=== PATIENT | male | born 1965 | race Caucasian/White ===

== ENCOUNTER 2020-08-15 09:32 | Outpatient (RCR) | payer MEDICARE, SELFPAY ==
[2013-08-15 18:00] VITALS: BMI 26.8
[2020-08-15] MEDS: COVID-19 VACC, MRNA(PFIZER)/PF 30 MCG/0.3 ML SYRINGE IM (07:15)
[2020-09-05] MEDS: COVID-19 VACC, MRNA(PFIZER)/PF 30 MCG/0.3 ML SYRINGE IM (07:05)
== END 2020-08-15 23:59 ==
LOC: IMMUN 09:32
PROVIDERS: PCP Internal Medicine; Visit Provider Family Medicine
DX: Z23 Encounter for immunization (principal)
CPT/HCPCS: 0001A; 0002A; 91300

== ENCOUNTER 2024-12-27 00:23 | Emergency (ER) | payer OTHER, SELFPAY ==
[2024-12-27 00:26] VITALS: BP 123/82; PULSE 51; RESP 16; TEMP 36.8; O2SAT 100; BMI 27.3
--- NOTE | 2024-12-27 01:00 | EDS_ITS ---
HPI History of Present Illness Chief Complaint: Back Informant: patient and EMS Narrative Narrative: 59-year-old male had sciatica 8 years ago, had an MRI showing L4-5 disc significant degeneration/problem and suspected source, opted to treat nonoperatively, had some injections and has been pain-free until 3 weeks ago when he lifted an air conditioning unit and had acute pain that has been persistent. For the past week it has been progressively worse and radiating into the right thigh not below the knee but down to it. No numbness or tingling. Has been urinating frequently but states has also been drinking more fluids. Denies any bowel or bladder dysfunction or retention/incontinence. No saddle anesthesia. No abdominal pain. Feels similar to what it did 8 years ago except then it was going down both legs. Yesterday he went to urgent care for this and was prescribed muscle relaxers and prednisone which he started but they are not helping, he is adding Tylenol to it and is not helping at all. [facility] Medical History (Updated 12/27/24 @ 02:[address] Mateus Ward MD) Sciatica Home Medications ?Medication ?Instructions ?Recorded ?Last Taken ?Type levothyroxine 150 mcg tablet 150 mcg PO DAILY 08/15/13 08/15/13 History sertraline 100 mg tablet 100 DAILY 08/15/13 08/14/13 History oxycodone-acetaminophen 5 mg-325 1 tab PO Q6H PRN PRN Pain 4 days 12/27/24 Unknown Rx mg tablet #15 TABLETS Allergy/AdvReac Type Severity Reaction Status Date / Time No Known Allergies Allergy Verified 12/27/24 00:26 Social History Smoking Status: Never smoker ROS ROS ED Constitutional Constitutional ED: Denies chills or fever(s) Gastrointestinal Gastrointestinal: Denies abdominal pain, constipation, fecal incontinence, nausea or vomiting Genitourinary Genitourinary ED: Reports other Details: no urinary retention ; Denies abdominal discomfort or urinary incontinence Musculoskeletal Musculoskeletal: Reports as per HPI and back pain; Denies neck pain Integumentary Denies rash or wounds Neurologic Neurologic: Denies headache(s), paresthesias or weakness EXAM Physical Exam Const Vital Signs: 12/27/24 00:26 Temperature 98.3 F Temperature Source Oral Pulse Rate 51 L Respiratory Rate 16 Blood Pressure 123/82 H Blood Pressure Mean 95 Pulse Ox 100 Oxygen Delivery Method Room Air Positive well nourished and well developed General Appearance ED: well developed and NAD HEENT Negative for trauma or tenderness Eyes PERRL and EOMs intact bilaterally Neck full ROM and supple GI normal to inspection, nondistended, normoactive bowel sounds, soft to palpation and non-tender Back/Spine normal to inspection Lumbar Spine / Lower Back: ROM limited, paraspinal muscle tenderness and straight leg raise negative bilaterally; Negative for lumbar spinal tenderness Extremity normal to inspection, full ROM and no pedal edema Neuro oriented x3 and no sensory deficits noted Neuro Narrative: Normal gait Sensorium / Orientation: alert Motor Exam: strength 5/5 throughout and clonus absent Deep Tendon Reflexes: Rt Patellar (L4): 1+, Lt Patellar (L4): 1+, Rt Ankle (S1): 1+ and Lt Ankle (S1): 1+ Deep Tendon Reflexes Back: Rt Patellar (L4): 1+, Lt Patellar (L4): 1+, Rt Ankle (S1): 1+ and Lt Ankle (S1): 1+ Plantar Reflex: Downgoing: bilateral Psych mental status grossly normal and thought process normal Skin no rashes or lesions noted and no wounds MDM MDM MDM Narrative Medical decision making narrative: Pain control was provided and obtained three-view x-ray series of the lumbosacral spine which my interpretation shows no acute compression fractures, radiology was in agreement. Patient did better after initial round of morphine and Zofran, but the pain was coming back. He is able to walk. His postvoid residual was relatively low, showing no acute urinary retention, plan here is to give him a dose of Dilaudid 0.5 mg IV as well as an oxycodone prior to discharge with a prescription for some oxycodone and close outpatient follow-up with spine. He and are comfortable with that plan. Radiography Diagnostic Testing: Clinical Impression(s) from Imaging Studies Lumbar Spine X-Ray 12/27/24 01:25 IMPRESSION: No acute injury Reading Location: [place] [address] Discharge Plan Triage Chief Complaint: Back ED Provider: Mateus Ward Dx/Rx/DC Orders Clinical Impression: Acute bilateral low back pain with right-sided sciatica Instructions: ED Sciatica Prescriptions: New oxycodone-acetaminophen 5-325 mg tablet 1 tab PO Q6H PRN PRN (Reason: Pain) 4 Days Qty: 15 0RF No Action sertraline 100 MG tablet 100 DAILY Patient Comments: levothyroxine 150 MCG tablet 150 mcg PO DAILY Primary Care Provider: Juan Simpson Referrals: Macho Neff MD [Med Staff - Active Staff] - As soon as possible Print Language: Sami Disposition Disposition: Home, Self Care
--- OUTSIDE RECORDS SUMMARY | 2024-12-27 01:21 | XMS RPT_ITS | CCD ---
Author Organization [facility] Partnership [facility] [place] [facility] Care Team Providers Care Microsoft Solutions Architect Name Role Phone Brent Pepper MD Primary Care Provider Brent Pepper MD Primary Care Provider [phone] Dejon MILLING MACHINE OPERATOR.Maeve TIAN Unavailable BRENT PEPPER Primary Care Unavailable MAEVE ASHFORD Referring Unavailable BRENT PEPPER Primary Care Unavailable BRENT PEPPER Attending Unavailable BRENT PEPPER Primary Care Unavailable NIGEL SIMPSON Attending Unavailable BRENT PEPPER Primary Care Unavailable Allergies Allergy Classification Reported Allergen(s) Allergy Type Date of Onset Reaction(s) Facility (19 sources) Grass pollen; Translations: [GRASS POLLEN] Propensity to adverse reactions 08-19-2005 [facility] (19 sources) Pollen; Translations: [POLLEN] Propensity to adverse reactions 08-19-2005 [facility] (14 sources) Homeopathic Products; Translations: [HOMEOPATHIC PRODUCTS] Propensity to adverse reactions 08-19-2005 [facility] Medications Current Medications Medication Drug Class(es) Dates Sig (Normalized) Sig (Original) cyclobenzaprine hydrochloride 10 mg oral tablet (1 source) Muscle Relaxant Start: 12-25-2024 take 1 tablet by mouth three times daily as needed cyclobenzaprine (FLEXERIL) 10 mg tablet Indications: Radicular low back pain Take 1 tablet by mouth three times a day as needed. 30 tablet 12/25/2024 Active doxycycline hyclate 100 mg oral tablet (1 source) Tetracycline-cl ass Drug Start: 02-13-2024 End: 02-20-2024 take 1 tablet by mouth twice daily doxycycline (VIBRA-TABS) 100 mg tablet Indications: Respiratory infection Take 1 tablet by mouth two times a day for 7 days. 14 tablet 02/13/2024 02/20/2024 Active levothyroxine sodium 0.15 mg oral tablet (20 sources) l-Thyroxine Start: 09-06-2023 End: 09-07-2024 take 1 tablet by mouth once daily for thyroid dysfunction levothyroxine (SYNTHROID) 150 mcg tablet Indications: Postsurgical hypothyroidism Take 1 tablet by mouth once daily. Take on empty stomach. For thyroid 90 tablet 3 09/07/2024 Active Start: 08-08-2021 End: 08-31-2022 take 1 tablet by mouth once daily for thyroid dysfunction levothyroxine (SYNTHROID) 150 mcg tablet Indications: Postsurgical hypothyroidism Take 1 tablet by mouth once daily. Take on empty stomach. For thyroid 30 tablet 11 08/31/2022 Active Start: 08-15-2013 take 1 tablet by paulette th once daily Levothyroxine (Synthroid) 150 MCG Tablet Active 150 MCG PO DAILY August 15, 2013 6:03pm Comment on above: Take 1 tablet by paulette th once daily. Take on empty stomach. For thyroid predniSONE 20 mg oral tablet (1 source) Start: 12-25-2024 End: 12-30-2024 take 1 tablet by mouth once daily predniSONE (DELTASONE) 20 mg tablet Indications: Radicular low back pain Take 1 tablet by mouth once daily for 5 days. 5 tablet 12/25/2024 12/30/2024 Active Completed/Discontinued Medications Medication Drug Class(es) Dates Sig (Normalized) Sig (Original) cetirizine hydrochloride 10 mg oral tablet (6 sources) Histamine-1 Receptor Antagonist Start: 08-26-2020 End: 08-31-2022 cetirizine (ZYRTEC) 10 mg tablet Take 1 tablet by mouth as needed (Fall allergies). 0 08/26/2020 08/31/2022 Discontinued Comment on above: Take 1 tablet by paulette th as needed (Fall allergies). polyethylene glycol 3350 612668 mg / potassium chloride 2970 mg / sodium bicarbonate 6740 mg / sodium chloride 5860 mg / sodium sulfate 52861 mg powder for oral solution (1 source) Osmotic Laxative Start: 11-06-2022 End: 11-06-2022 peg 3350-Electrolytes (GOLYTELY) 236-22.74-6.74 -5.86 gram suspension Take 4,000 mL by mouth one time only for 1 dose. 1 Each 0 11/06/2022 11/06/2022 Comment on above: Take 4,000 mL by paulette th one time only for 1 dose. sertraline 50 mg oral tablet (2 sources) Serotonin Reuptake Inhibitor Start: 11-25-2020 End: 08-28-2021 take 1 tablet by mouth once daily sertraline (ZOLOFT) 50 mg tablet Indications: Anxiety Take 1 tablet by mouth once daily. 90 tablet 2 11/25/2020 08/28/2021 Discontinued Start: 08-15-2013 Sertraline Hcl Active 100 DAILY August 15, 2013 6:03pm Comment on above: Take 1 tablet by paulette th once daily. Problems Active Problems Problem Classification Problem Date Documented Date Episodic/Chronic Complications of surgical procedures or medical care (20 sources) Postoperative hypothyroidism; Translations: [Postprocedural hypothyroidism] Onset: 12-23-2006 Chronic Disorders of lipid metabolism (4 sources) Hypertriglyceridemia ; Translations: [Pure hyperglyceridemia] Onset: 09-01-2024 Chronic Immunizations and screening for infectious disease (2 sources) Vaccination needed; Translations: [Encounter for immunization] Episodic Other and unspecified benign neoplasm (1 source) History of polyp of colon; Translations: [Personal history of colonic polyps] Episodic Other ear and sense organ disorders (1 source) Acute otitis externa of right ear; Translations: [Unspecified acute noninfective otitis externa, right ear] Episodic Other lower respiratory disease (1 source) Respiratory tract infection; Translations: [Other specified respiratory disorders] 02-13-2024 Episodic Other male genital disorders (1 source) Testicular mass; Translations: [Other specified disorders of the male genital organs] 03-26-2022 Episodic Other skin disorders (1 source) Raised seborrheic keratosis; Translations: [Other seborrheic keratosis] 09-02-2023 Episodic Other upper respiratory disease (18 sources) Non-allergic rhinitis; Translations: [Chronic rhinitis] Onset: 10-02-2011 10-02-2011 Chronic Residual codes; unclassified (20 sources) Obstructive sleep apnea syndrome; Translations: [Obstructive sleep apnea (adult) (pediatric)] Onset: 10-23-2011 Chronic Spondylosis; intervertebral disc disorders; other back problems (11 sources) Lumbago with sciatica; Translations: [Lumbago with sciatica, left side] Onset: 08-13-2016 Resolved: 08-09-2018 10-06-2023 Episodic Past or Other Problems Problem Classification Problem Date Documented Da te Episodic/Chronic Anxiety disorders (8 sources) Anxiety; Translations: [Anxiety disorder, unspecified] Onset: 2 Resolved: 6 08-08-2015 Chronic Diabetes mellitus without complication (13 sources) Impaired fasting glycemia; Translations: [Impaired fasting glucose] Onset: 7 Resolved: 1 Episodic Esophageal disorders (8 sources) Gastroesophageal reflux disease; Translations: [Gastro-esophageal reflux disease without esophagitis] Onset: 7 Resolved: 2 09-09-2011 Chronic Genitourinary symptoms and ill-defined conditions (10 sources) Lower urinary tract symptoms; Translations: [Unspecified symptoms and signs involving the genitourinary system] Onset: 4 Resolved: 5 09-02-2023 Episodic Other and unspecified benign neoplasm (20 sources) Tubular adenoma of colon; Translations: [Benign neoplasm of colon, unspecified] Onset: 7 Episodic Other ear and sense organ disorders (18 sources) Tinnitus of left ear; Translations: [Tinnitus, left ear] Onset: 1 Resolved: 5 08-26-2020 Episodic Other gastrointestinal disorders (8 sources) Dysphagia; Translations: [Dysphagia] Onset: 7 Resolved: 2 09-09-2011 Episodic Other screening for suspected conditions (not mental disorders or infectious disease) (19 sources) Patient encounter status; Translations: [Encounter for screening for malignant neoplasm of prostate] Onset: 3 Resolved: 4 Episodic Other upper respiratory disease (8 sources) Allergic rhinitis; Translations: [Other allergic rhinitis] Resolved: 2 09-09-2011 Chronic Skin and subcutaneous tissue infections (8 sources) Abscess of head, except face; Translations: [Cutaneous abscess of head [any part, except face]] Onset: 6 Resolved: 7 08-13-2016 Episodic Results Test Name Value Interpretation Reference Range Facility [facility] 12-25-2024 CNCO Letter Text Normal [facility] CNOVon 12-25-2024 CNOV Office Visit (FAMPWS ) GORDONKELLEY ([id number]) 1965 M Date Time Provider Department 12/25/24 6:40 PM [facility] SIMPS[facility] During your visit today, we recorded the following information about you: Pulse Blood pressure Weight 58/minute 148/90 98.2 kg Nigel Simpson MD 12/25/2024 6:52 PM Signed - Obtain a lumbar spine X-ray this evening; we will notify you when the results are available. - Take prednisone 20 mg by mouth once daily for 5 days to reduce inflammation. - Begin the prescribed muscle relaxant as directed; avoid driving or operating heavy machinery while taking it. - Continue applying ice and heat to your lower back as needed for pain relief. - You are excused from work December 26 through December 29; a work slip has been provided. - If your pain worsens, contact the office immediately. - If you do not notice improvement after one week, schedule a follow-up appointment. - Have your blood pressure checked in one month to monitor for any trends. Nigel Simpson MD 12/25/2024 7:54 PM Signed Kelley Araujo Gordon is a 59-year-old male with a history of chronic back pain and sciatica, presenting with acute onset right-sided low back pain radiating to the buttock and thigh. HPI Chronic Back Pain: - History of back problems since 1995, managed with physiotherapy and social worker palliative care. - Diagnosed with severe sciatica in 2017, with MRI showing no disc at L4-L5. - Previously treated with two injections at [facility], providing 8 years of relief. - Recent exacerbation after bending over to hand picker a cat's bowl, described as an electric sensation in the back. - Current pain localized to the right side, starting at the base of the spine and radiating to the buttock and down the thigh to the knee. - Describes pain as spasms, ache, and throb; does not extend below the knee. - No associated numbness or tingling; no pain on the left side. - Increased urinary frequency over the weekend, attributed to high fluid intake and ibuprofen use. - No abdominal pain or issues reported. - Recent chiropractic evaluation with Dr. Colindres included gentle manipulation and exercises; pain worsened after returning to work. - Last imaging for back issues was in 2017. - No history of kidney problems. - Borderline high blood pressure noted, possibly related to current pain and stress. MEDICATIONS: Current Outpatient Medications Medication Sig levothyroxine (SYNTHROID) 150 mcg tablet Take 1 tablet by mouth once daily. Take on empty stomach. For thyroid predniSONE (DELTASONE) 20 mg tablet Take 1 tablet by mouth once daily for 5 days. cyclobenzaprine (FLEXERIL) 10 mg tablet Take 1 tablet by mouth three times a day as needed. No current facility-administered medications for this visit. ALLERGIES: ALLERGIES Allergen Reactions Grass Pollen Pollen PAST MEDICAL HISTORY Diagnosis Date Abscess of head, except face 02/14/2016 Allergic rhinitis due to other allergen Anxiety 09/09/2011 Dyskinesia of esophagus Dysphagia 12/23/2006 Esophageal reflux Esophagitis, unspecified Hypothyroidism Lower urinary tract symptoms (LUTS) 09/02/2023 Lumbago with sciatica, right side 08/13/2016 Nontoxic uninodular goiter LINA (obstructive sleep apnea) 10/23/2011 Personal history of other infectious and parasitic disease [id number] [facility] Postsurgical hypothyroidism 12/23/2006 Rhinitis, non-allergic 10/02/2011 Tinnitus of left ear 08/26/2020 Tubular adenoma of colon 12/19/2016 Urinary sys symptom NEC Bladder outlet symptoms PAST SURGICAL HISTORY Procedure Laterality Date COLONOSCOPY 12/07/2016 tubular adenoma, repeat in 3 years COLONOSCOPY 08/04/2021 repeat in 1 year (tubular adenoma) COLONOSCOPY - DIAGNOSTIC 12/14/2022 COLONOSCOPY FLX DX W/COLLJ SPEC WHEN PFRMD 03/25/2020 Colonoscopy 1 year repeat EGD TRANSORAL BIOPSY SINGLE/MULTIPLE 10/10/2010 SEPTOPLASTY/SUBMUCOUS RESECJ W/WO CARTILAGE GRF 1998 Septoplasty FAMILY HISTORY Problem Relation Age of Onset Hypertension Mother Diabetes Mother 84 prediabetes Diabetes Father GI Father Celiac Hypertension Brother Diabetes Maternal Grandfather Social History Tobacco Use Smoking status: Former Types: Cigars Smokeless tobacco: Never Tobacco comments: rare cigar Vaping Use Vaping status: Never Used Substance Use Topics Alcohol use: Yes Alcohol/week: 7.0 standard drinks of alcohol Types: 7 Standard drinks or equivalent per week Drug use: No Reviewed current medications, allergies, past medical history, surgical history, family history and social history today. REVIEW OF SYSTEMS Gastrointestinal: (-) abdominal pain Genitourinary: (+) urinary frequency, (-) flank pain Musculoskeletal: (+) right low back pain, (+) right buttock pain, (+) right thigh pain, (+) right knee pain, (+) muscle spasms Neurological: (more content not included)... Normal [facility] CNOVon 09-07-2024 CNOV Office Visit (INTMWS ) KELLEY LEYVA ([id number]) 1965 M Date Time Provider Department 09/07/24 5:20 PM BRENT PEPPER [facility] During your visit today, we recorded the following information about you: Pulse Respiration Blood pressure Weight 54/minute 16/minute 110/63 98 kg Height 1.867 m Brent Pepper MD 09/07/2024 6:16 PM Signed This note was created using Pristones. Subjective Patient presents with: Physical Kelley Leyva is a 58 year old male. He felt well in general. Work is physical and he also exercised 2 days per week. His thyroid dose was stable. Lipids improved, and borderline glucose was stable. His obstructive sleep apnea was well controlled, and managed by Dr. Reynoso. His nasal allergies were mainly in the fall and controlled with over the counter Flonase and Zyrtec. His colonoscopy was due next year. He sees Dr. Mireles for optometry. Review of Systems Constitutional: Negative for activity change, fatigue and unexpected weight change. HENT: Positive for tinnitus. Negative for congestion and hearing loss. Eyes: Negative for visual disturbance. Respiratory: Negative for cough, shortness of breath and wheezing. Cardiovascular: Negative for chest pain, palpitations and leg swelling. Gastrointestinal: Negative for abdominal pain, constipation and diarrhea. Genitourinary: Negative for difficulty urinating and dysuria. Musculoskeletal: Negative for arthralgias and back pain. Skin: Negative for color change. Neurological: Negative for dizziness and headaches. Psychiatric/Behavioral: Negative for dysphoric mood and sleep disturbance. The patient is not nervous/anxious. PAST MEDICAL HISTORY Diagnosis Date Abscess of head, except face 02/14/2016 Allergic rhinitis due to other allergen Anxiety 09/09/2011 Dyskinesia of esophagus Dysphagia 12/23/2006 Esophageal reflux Esophagitis, unspecified Hypothyroidism Lower urinary tract symptoms (LUTS) 09/02/2023 Lumbago with sciatica, right side 08/13/2016 Nontoxic uninodular goiter LINA (obstructive sleep apnea) 10/23/2011 Personal history of other infectious and parasitic disease [id number] [facility] Postsurgical hypothyroidism 12/23/2006 Rhinitis, non-allergic 10/02/2011 Tinnitus of left ear 08/26/2020 Tubular adenoma of colon 12/19/2016 Urinary sys symptom NEC Bladder outlet symptoms PAST SURGICAL HISTORY Procedure Laterality Date COLONOSCOPY 12/07/2016 tubular adenoma, repeat in 3 years COLONOSCOPY 08/04/2021 repeat in 1 year (tubular adenoma) COLONOSCOPY - DIAGNOSTIC 12/14/2022 COLONOSCOPY FLX DX W/COLLJ SPEC WHEN PFRMD 03/25/2020 Colonoscopy 1 year repeat EGD TRANSORAL BIOPSY SINGLE/MULTIPLE 10/10/2010 SEPTOPLASTY/SUBMUCOUS RESECJ W/WO CARTILAGE GRF 1998 Septoplasty FAMILY HISTORY Problem Relation Age of Onset Hypertension Mother Diabetes Mother 84 prediabetes Diabetes Father GI Father Celiac Hypertension Brother Diabetes Maternal Grandfather Social History Tobacco Use Smoking status: Former Types: Cigars Smokeless tobacco: Never Tobacco comments: rare cigar Vaping Use Vaping status: Never Used Substance Use Topics Alcohol use: Yes Alcohol/week: 7.0 standard drinks of alcohol Types: 7 Standard drinks or equivalent per week Drug use: No ALLERGIES Allergen Reactions Grass Pollen Pollen Current Outpatient Medications Medication Sig levothyroxine (SYNTHROID) 150 mcg tablet Take 1 tablet by mouth once daily. Take on empty stomach. For thyroid No current facility-administered medications for this visit. Objective BP 110/63 Pulse (!) 54 Resp 16 Ht 186.7 cm (6' 1.5) Wt 98 kg (216 lb 0.8 oz) SpO2 98% BMI 28.12 kg/m? Physical Exam Constitutional: Appearance: Normal appearance. HENT: Head: Normocephalic. Nose: No congestion or rhinorrhea. Eyes: Extraocular Movements: Extraocular movements intact. Conjunctiva/sclera: Conjunctivae normal. Cardiovascular: Rate and Rhythm: Normal rate and regular rhythm. Heart sounds: No murmur heard. No gallop. Pulmonary: Breath sounds: Normal breath sounds. Abdominal: Palpations: Abdomen is soft. Tenderness: There is no abdominal tenderness. Musculoskeletal: General: No tenderness. Normal range of motion. Right lower leg: No edema. Left lower leg: No edema. Lymphadenopathy: Cervical: No cervical adenopathy. Neurological: General: No focal deficit present. Mental Status: He is alert. Gait: Gait normal. Latest Ref Rng 09/01/2024 Protein, Total 6.3 - 8.0 g/dL 7.0 Albumin 3.9 - 4.9 g/dL 4.3 Calcium 8.5 - 10.2 mg/dL 8.9 Bilirubin, Total 0.2 - 1.3 mg/dL 0.8 Alkaline Phosphatase 38 - 113 U/L 59 AST 14 - 40 U/L 22 ALT 10 - 54 U/L 18 Glucose 74 - 99 mg/dL 104 (H) BUN 9 - 24 mg/dL 12 Creatinine 0.73 - 1.22 mg/dL 0.73 Sodium 136 - 144 mmol/L 136 Potassium 3.7 - 5.1 mm (more content not included)... Normal [facility] Comprehensive metabolic 2000 panelon 09-01-2024 Albumin [Mass/Vol] 4.3 g/dL Normal 3.9-4.9 [facility] Comment on above: Order Comment: Speci men Type: BLOOD SPECIMEN Ordering Facility: [facility] Address: [address] [place] [address] Performed By: #### 3 016-3, 24205-4, 33260-3 #### [facility] CLIA [id number] [address] [place], [place] [address] [address] [place] ALP [Catalytic activity/Vol] 59 U/L Normal 38-113 [facility] Comment on above: Order Comment: Speci men Type: BLOOD SPECIMEN Ordering Facility: [facility] Address: [address] [place] [address] Performed By: #### 3 016-3, 29407-0, #### [facility] CLIA [id number] [address] [place] [address] [place] ALT [Catalytic activity/Vol] 18 U/L Normal 10-54 [facility] Comment on above: Order Comment: Speci men Type: BLOOD SPECIMEN Ordering Facility: [facility] Address: [address] [place] [address] Performed By: #### 3 016-3, , #### [facility] CLIA [id number] [address] [place] [address] [place] Anion gap [Moles/Vol] 6 mmol/L Low 8-15 [facility] Comment on above: Order Comment: Speci men Type: BLOOD SPECIMEN Ordering Facility: [facility] Address: [address] [place] [address] Performed By: #### 3 016-3, , #### [facility] CLIA [id number] [address] [place] [address] [place] AST [Catalytic activity/Vol] 22 U/L Normal 14-40 [facility] Comment on above: Order Comment: Speci men Type: BLOOD SPECIMEN Ordering Facility: [facility] Address: [address] [place] [address] Performed By: #### 3 016-3, 05128-6, #### [facility] CLIA [id number] [address] [place] [address] [place] Bilirubin [Mass/Vol] 0.8 mg/dL Normal 0.2-1.3 [facility] Comment on above: Order Comment: Speci men Type: BLOOD SPECIMEN Ordering Facility: [facility] Address: [address] [place] [address] Performed By: #### 3 016-3, 41748-5, 99050-8 #### [facility] CLIA [id number] [address] [place] [address] [place] Calcium [Mass/Vol] 8.9 mg/dL Normal 8.5-10.2 [facility] Comment on above: Order Comment: Speci men Type: BLOOD SPECIMEN Ordering Facility: [facility] Address: [address] [place] [address] Performed By: #### 3 016-3, 34530-8, 70786-2 #### [facility] CLIA [id number] [address] [place] [address] [place] Chloride [Moles/Vol] 100 mmol/L Normal 98-107 [facility] Comment on above: Order Comment: Speci men Type: BLOOD SPECIMEN Ordering Facility: [facility] Address: [address] [place] [address] Performed By: #### 3 016-3, 34600-6, 91412-7 #### [facility] CLIA [id number] [address] [place] [address] [place] CO2 [Moles/Vol] 30 mmol/L Normal 22-30 [facility] Comment on above: Order Comment: Speci men Type: BLOOD SPECIMEN Ordering Facility: [facility] Address: [address] [place] [address] Performed By: #### 3 016-3, 29963-1, 41194-5 #### [facility] CLIA [id number] [address] [place] [address] [place] Creatinine [Mass/Vol] 0.73 mg/dL Normal 0.73-1.22 [facility] Comment on above: Order Comment: Speci men Type: BLOOD SPECIMEN Ordering Facility: [facility] Address: [address] [place] [address] Performed By: #### 3 016-3, 52622-6, 14007-4 #### [facility] CLIA [id number] [address] [place] [address] [place] Creatinine and Glomerular filtration rate.predicted panel (S/P/Bld) 105 mL/min/1.73m??? Normal >=60 [facility] Comment on above: Order Comment: Diane solo Type: BLOOD SPECIMEN Ordering Facility: [facility] Address: [address] [place] [address] Result Comment: Mayra mated Glomerular Filtration Rate (eGFR) is calculated using the 2020 CKD-EPI creatinine equation. This equation utilizes serum creatinine, sex, and age as parameters. The creatinine assay has traceable calibration to isotope dilution-mass spectrometry. Refer to KDIGO guidelines for clinical interpretation. In patients with unstable renal function, e.g. those with acute kidney injury, the eGFR may not accurately reflect actual GFR. Performed By: #### 3 016-3, 94628-8, 15564-3 #### [facility] CLIA [id number] [address] [place] [address] [place] Glucose [Mass/Vol] 104 mg/dL High 74-99 [facility] Comment on above: Order Comment: Diane solo Type: BLOOD SPECIMEN Ordering Facility: [facility] Address: [address] [place] [address] Result Comment: The [place] [employer] (ADA) provides guidance for cutoff values for fasting glucose and random glucose. The ADA defines fasting as no caloric intake for at least 8 hours. Fasting plasma glucose results between 100 to 125 mg/dL indicate increased risk for diabetes (prediabetes). Fasting plasma glucose results greater than or equal to 126 mg/dL meet the criteria for diagnosis of diabetes. In the absence of unequivocal hyperglycemia, results should be confirmed by repeat testing. In a patient with classic symptoms of hyperglycemia or hyperglycemic crisis, random plasma glucose results greater than or equal to 200 mg/dL meet the criteria for diagnosis of diabetes. Reference: Standards of Medical Care in Diabetes 2016, [place] [employer]. Diabetes Care. 2016.39(Suppl 1). Performed By: #### 3 016-3, 41798-8, 44667-1 #### [facility] CLIA [id number] [address] [place], [place] [address] [place] Potassium [Moles/Vol] 4.3 mmol/L Normal 3.7-5.1 [facility] Comment on above: Order Comment: Speci men Type: BLOOD SPECIMEN Ordering Facility: [facility] Address: [address] [place] [address] Performed By: #### 3 016-3, 96029-0, #### [facility] CLIA [id number] [address] [place], [place] [address] [place] Protein [Mass/Vol] 7.0 g/dL Normal 6.3-8.0 [facility] Comment on above: Order Comment: Speci men Type: BLOOD SPECIMEN Ordering Facility: [facility] Address: [address] [place] [address] Performed By: #### 3 016-3, 12045-8, #### [facility] CLIA [id number] [address] [place], [place] [address] [place] Sodium [Moles/Vol] 136 mmol/L Normal 136-144 [facility] Comment on above: Order Comment: Speci men Type: BLOOD SPECIMEN Ordering Facility: [facility] Address: [address] [place] [address] Performed By: #### 3 016-3, 89880-6, #### [facility] CLIA [id number] [address] [place], [place] [address] [place] Urea nitrogen [Mass/Vol] 12 mg/dL Normal 9-24 [facility] Comment on above: Order Comment: Speci men Type: BLOOD SPECIMEN Ordering Facility: [facility] Address: [address] [place], [place] [id number] Performed By: #### 3 016-3, 42965-0, 54753-7 #### [facility] CLIA [id number] [address] [place] HbA1c (Bld)on 09-01-2024 Average glucose Estimated from glycated hemoglobin (Bld) [Mass/Vol] 103 mg/dL Normal [facility] Comment on above: Order Comment: Diane solo Type: BLOOD SPECIMEN Ordering Facility: [facility] Address: [address] [place] [address] Result Comment: eAG: (Estimated average glucose) is a calculated value from HgbA1c and is marketing development representative of the average blood glucose level in the last 2-3 month period. Performed By: #### 5 5454-3 #### [facility] CLIA [id number] [address] [place] [address] [place] HbA1c (Bld) [Mass fraction] 5.2 % Normal 4.3-5.6 [facility] Comment on above: Order Comment: Diane solo Type: BLOOD SPECIMEN Ordering Facility: [facility] Address: [address] [place] [address] Result Comment: Amer ican Diabetes Association guidelines indicate that patients with HgbA1c in the range 5.7-6.4% are at increased risk for development of diabetes, and intervention by lifestyle modification may be beneficial. HgbA1c greater or equal to 6.5% is considered diagnostic of diabetes. Performed By: #### 5 5454-3 #### [facility] CLIA [id number] [address] [place] [address] [place] Lipid 1996 panelon Cholesterol [Mass/Vol] 170 mg/dL Normal <200 [facility] Comment on above: Order Comment: Diane solo Type: BLOOD SPECIMEN Ordering Facility: [facility] Address: [address] [place] [address] Result Comment: <200 mg/dL, Desirable 200-239 mg/dL, Borderline high >239 mg/dL, High Performed By: #### 3 016-3, 78836-3, 79190-3 #### [facility] CLIA [id number] [address] [id number] [address] [place] Cholesterol in HDL [Mass/Vol] 43 mg/dL Normal >39 [facility] Comment on above: Order Comment: Diane edil Type: BLOOD SPECIMEN Ordering Facility: [facility] Address: [address] [place] [address] Result Comment: 40-5 9 mg/dL, Acceptable >59 mg/dL, High: Negative risk factor for coronary heart disease <40 mg/dL, Low: Positive risk factor for coronary heart disease Performed By: #### 3 016-3, 15130-5, 46177-0 #### [facility] CLIA [id number] [address] [place] [address] Cholesterol in LDL [Mass/Vol] 98 mg/dL Normal <100 [facility] Comment on above: Order Comment: Diane edil Type: BLOOD SPECIMEN Ordering Facility: [facility] Address: [address] [place] [address] Result Comment: <100 mg/dL, Optimal 100-129 mg/dL, Near optimal/above optimal 130-159 mg/dL, Borderline high 160-189 mg/dL, High >189 mg/dL, Very high Secondary prevention optimal LDL Cholesterol levels are recommended to be < 70 mg/dL Performed By: #### 3 016-3, 43053-9, 45857-7 #### [facility] CLIA [id number] [address] [place] [address] OF [facility] Cholesterol in LDL/Cholesterol in HDL [Mass ratio] 2.28 {ratio} Normal <2.54 [facility] Comment on above: Order Comment: Diane solo Type: BLOOD SPECIMEN Ordering Facility: [facility] Address: [address] [place] [address] Result Comment: Refe rence: 1. National Cholesterol Education Program ATP III Guideline At-A-Glance Quick Desk Reference: National Heart, Lung, and Blood Thornton. National Institutes of Health. 2001: NIH Publication No. 01-3305. 2. An International Atherosclerosis Society position paper: global recommendations for the management of dyslipidemia: executive summary, Atherosclerosis. 2014: 232(2):410-413. Performed By: #### 3 016-3, 00932-9, #### [facility] CLIA [id number] [address] [place] [id number] [place] Cholesterol in VLDL [Mass/Vol] 29 mg/dL Normal <30 [facility] Comment on above: Order Comment: Speci men Type: BLOOD SPECIMEN Ordering Facility: [facility] Address: [address] [place] [address] Performed By: #### 3 016-3, , #### [facility] CLIA [id number] [address] [place], [place] [address] [place] Cholesterol non HDL [Mass/Vol] 127 mg/dL Normal <130 [facility] Comment on above: Order Comment: Speci men Type: BLOOD SPECIMEN Ordering Facility: [facility] Address: [address] [place] [address] Result Comment: <130 mg/dL, Optimal 130-159 mg/dL, Near optimal/above optimal 160-189 mg/dL, Borderline high 190-219 mg/dL, High >219 mg/dL, Very high Secondary prevention optimal non HDL Cholesterol levels are recommended to be <100 mg/dL Performed By: #### 3 016-3, , #### [facility] CLIA [id number] [address] [place] [address] [place] Cholesterol.total /Cholesterol in HDL [Mass ratio] 3.95 {ratio} Normal <5.10 [facility] Comment on above: Order Comment: Speci men Type: BLOOD SPECIMEN Ordering Facility: [facility] Address: [address] [place], [place] [address] Performed By: #### 3 016-3, 17082-7, #### [facility] CLIA [id number] [address] [place], [place] [address] [place] FASTING TIME 12 hrs Normal [facility] Comment on above: Order Comment: Speci men Type: BLOOD SPECIMEN Ordering Facility: [facility] Address: [address] [place] [address] Performed By: #### 3 016-3, 06496-6, 79907-6 #### [facility] CLIA [id number] [address] [place] [address] [place] Triglyceride [Mass/Vol] 144 mg/dL Normal <150 [facility] Comment on above: Order Comment: Speci men Type: BLOOD SPECIMEN Ordering Facility: [facility] Address: [address] [place] [address] Result Comment: <150 mg/dL, Normal 150-199 mg/dL, Borderline high 200-499 mg/dL, High >499 mg/dL, Very high Performed By: #### 3 016-3, 41139-6, #### [facility] CLIA [id number] [address] [place] [address] [place] PSA/PROSTATE SPECIFIC ANTIGE N SCREENINGon 09-01-2024 Prostate specific Ag [Mass/Vol] 0.57 ng/mL Normal <2.60 [facility] Comment on above: Order Comment: Speci men Type: BLOOD SPECIMEN Ordering Facility: [facility] Address: [address] [place] [address] Result Comment: Tota l PSA test methodology used is the Electrochemiluminescence Immunoassay by [employer]. Total PSA values by differing methodologies cannot be interchanged. Performed By: #### P SAS1 #### [facility] CLIA [id number] [address] [place] [address] [place] TSH SerPl-aCncon 09-01-2024 TSH Qn 0.857 m[IU]/L Normal 0.270-4.200 [facility] Comment on above: Order Comment: Speci men Type: BLOOD SPECIMEN Ordering Facility[facility] Address: [address] [place] [address] Performed By: #### 3 016-3, 47615-1, 85281-9 #### [facility] CLIA [id number] [address] [place] [address] [place] [facility] CNOVon 02-13-2024 CNOV Office Visit (UCWSTR ) KELLEY LEYVA ([id number]) 1965 M Date Time Provider Department 02/13/24 9:45 AM FINA SINGH [facility] During your visit today, we recorded the following information about you: Temperature Pulse Respiration Blood pressure 97.3 degrees 52/minute 18/minute 111/71 Weight 98 kg Fina Singh APRN.SERVICES REP 02/13/2024 10:11 AM Signed CC: Patient presents with: Cough: Sore throat, raspy voice from cough, chest full of phlegm x 1 week HPI: Kelley Leyva is a 58 year old male who presents to the office with complaint of head congestion, cough, productive, sore throat, and sinus symptoms for a week. Symptoms are worsening Associated symptoms includes cough. Denies fever, nausea, vomiting , and diarrhea. Treatments tried include nothing so far. with no relief of symptoms. Sick contacts: unknown. History of asthma, frequent episodes of bronchitis, chronic bronchitis, bronchiectasis or COPD: No Smoker: No Seasonal/environmental allergies: No The ROS is otherwise negative. The patient's pmh, medications, allergies, and past visits are reviewed. PHYSICAL EXAM: BP 111/71 Pulse (!) 52 Temp 36.3 ?C (97.3 ?F) Resp 18 Wt 98 kg (216 lb 0.8 oz) SpO2 98% BMI 28.90 kg/m? General appearance: alert, cooperative, pleasant, in no acute distress Head: Normocephalic Eyes: EOM's intact, conjunctiva pink and moist, no icterus, sclera white, non-injected Ears: Right ear: External ear/canal- Normal, TM - clear with good landmarks. Left ear: External ear/canal- Normal, TM - clear with good landmarks Oropharynx:moist without lesions, No erythema, exudates or tonsillar hypertrophy. Heart: Negative. RRR without obvious murmur, gallop, or rubs. No ectopy. Lungs: clear to auscultation, without rales or wheeze, good air exchange PAST MEDICAL HISTORY Diagnosis Date Abscess of head, except face 02/14/2016 Allergic rhinitis due to other allergen Anxiety 09/09/2011 Dyskinesia of esophagus Dysphagia 12/23/2006 Esophageal reflux Esophagitis, unspecified Hypothyroidism Lower urinary tract symptoms (LUTS) 09/02/2023 Lumbago with sciatica, right side 08/13/2016 Nontoxic uninodular goiter LINA (obstructive sleep apnea) 10/23/2011 Personal history of other infectious and parasitic disease [id number] [facility] Postsurgical hypothyroidism 12/23/2006 Rhinitis, non-allergic 10/02/2011 Tinnitus of left ear 08/26/2020 Tubular adenoma of colon 12/19/2016 Urinary sys symptom NEC Bladder outlet symptoms PAST SURGICAL HISTORY Procedure Laterality Date COLONOSCOPY 12/07/2016 tubular adenoma, repeat in 3 years COLONOSCOPY 08/04/2021 repeat in 1 year (tubular adenoma) COLONOSCOPY - DIAGNOSTIC 12/14/2022 COLONOSCOPY FLX DX W/COLLJ SPEC WHEN PFRMD 03/25/2020 Colonoscopy 1 year repeat EGD TRANSORAL BIOPSY SINGLE/MULTIPLE 10/10/2010 SEPTOPLASTY/SUBMUCOUS RESECJ W/WO CARTILAGE GRF 1998 Septoplasty ALLERGIES Grass Pollen and Pollen MEDICATIONS levothyroxine (SYNTHROID) 150 mcg tablet Take 1 tablet by mouth once daily. Take on empty stomach. For thyroid doxycycline (VIBRA-TABS) 100 mg tablet Take 1 tablet by mouth two times a day for 7 days. FAMILY HISTORY Problem Relation Age of Onset Hypertension Mother Diabetes Mother 84 prediabetes Diabetes Father GI Father Celiac Hypertension Brother Diabetes Maternal Grandfather Social History Tobacco Use Smoking status: Former Types: Cigars Smokeless tobacco: Never Tobacco comments: rare cigar Vaping Use Vaping status: Never Used Substance Use Topics Alcohol use: Yes Alcohol/week: 7.0 standard drinks of alcohol Types: 7 Standard drinks or equivalent per week Drug use: No ASSESSMENT/PLAN: 1. Respiratory infection - ICD9: 519.8, ICD10: J98.8 - DOXYCYCLINE HYCLATE 100 MG TABLET Prescription instructions reviewed with patient as applicable. Potential red flag symptoms discussed with the patient. Reviewed appropriate action plan to take if red flag symptoms occur. Patient agreeable to treatment plan. Fina Singh APRN.SERVICES REP Allergies As of Date: 02/13/2024 Noted Allergy Reaction GRASS POLLEN 08/19/2005 POLLEN 08/19/2005 Date Reviewed: 02/13/2024 Reviewed by: Leidy Galvan LPN - Fully Assessed Reason for Visit: Cough [28] Cmt: Sore throat, raspy voice from cough, chest full of phlegm x 1 week Primary Visit Diagnosis:Respiratory infection [J98.8] Order(s):doxycycline (VIBRA-TABS) 100 mg tabletTake 1 tablet by mouth two times a day for 7 days.Disp: 14 tabletRfl: 0 Prescriptions as of 02/13/2024 - doxycycline (VIBRA-TABS) 100 mg tablet Take 1 tablet by mouth two times a day for 7 days. - levothyroxine (SYNTHROID) 150 mcg tablet Take 1 tablet by mouth once daily. Take on empty stomach. For thyroid Problem List As Of Date 02/13/2024 Noted Resolved Allergic rhinitis due to other liam (more content not included)... Normal [facility] SURGICAL PATHOLOGYon 023 Case Report Surgical Pathology R eport Case: [id number] Authorizing Provider: Valentin Tinoco MD Collected: 12/14/2022 08:57 AM Ordering Location: Ambulatory Surgery Received: 12/14/2022 03:51 PM Pathologist: Tima Fuentes MD Specimen: CECUM POLYP [facility] FINAL DIAGNOSIS A. Cecum polyp, biop sy: - Tubular adenoma. [facility] Gross Description A. CECUM POLYP Received in formalin are multiple segments of cevallos polypoid tissue ranging in size from 0.8 x 0.6 x 0.6 cm to 0.2 x 0.2 x 0.2 cm. No stalks are noted. The lines of resections are noted. The larger specimens are bisected. The smaller specimens are not sectioned. Totally submitted in formalin in six cassettes. SS December 15, 2022 12:58 AM Gross examination performed at [facility], [address] [place] [address] [facility] Performing Lab Diagnostic interpret ation performed at [facility], [address] [id number] CLIA# [id number] Central Office Repairer Supervisor: Tima Fuentes M.D. [facility] COLONOSCOPY SCREENINGon 11-28 [facility] No Panel Informationon 03-26 [facility] Vital Signs Date Time Vital Sign Value Performing Clinician Carlota hernandez 12-25-2024 18:36-0400 Body mass index (BMI) [Ratio] 28.16 kg/m2 Nigel Simpson MD Work Phone: [facility] 12-25-2024 18:36-0400 Body weight 98.16 kg Nigel Simpson MD Work Phone: [facility] 12-25-2024 18:36-0400 Diastolic blood pressure 90 mm[Hg] Nigel Simpson MD Work Phone: [facility] 12-25-2024 18:36-0400 Heart rate 58 /min Nigel Simpson MD Work Phone: [facility] 12-25-2024 18:36-0400 SaO2% (BldA) [Mass fraction] 97 % Nigel Simpson MD Work Phone: [facility] 12-25-2024 18:36-0400 Systolic blood pressure 148 mm[Hg] Nigel Simpson MD Work Phone: [facility] 09-07-2024 17:14-0400 Body height 186.7 cm Brent Pepper MD Work Phone: [facility] 09-07-2024 17:14-0400 Body mass index (BMI) [Ratio] 28.12 kg/m2 Brent Pepper MD Work Phone: [facility] 09-07-2024 17:14-0400 Body weight 98 kg Brent Pepper MD Work Phone: [facility] 09-07-2024 17:14-0400 Diastolic blood pressure 63 mm[Hg] Brent Pepper MD Work Phone: [facility] 09-07-2024 17:14-0400 Heart rate 54 /min Brent Pepper MD Work Phone: [facility] 09-07-2024 17:14-0400 Respiratory rate 16 /min Brent Pepper MD Work Phone: [facility] 09-07-2024 17:14-0400 SaO2% (BldA) [Mass fraction] 98 % Brent Pepper MD Work Phone: [facility] 09-07-2024 17:14-0400 Systolic blood pressure 110 mm[Hg] Brent Pepper MD Work Phone: [facility] 02-13-2024 09:36-0400 Body mass index (BMI) [Ratio] 28.9 kg/m2 Fina Singh APRN.SERVICES REP Work Phone: [facility] 02-13-2024 09:36-0400 Body temperature 97.3 [degF] Fina Singh APRN.SERVICES REP Work Phone: [facility] 02-13-2024 09:36-0400 Body weight 98 kg Fina Singh APRN.SERVICES REP Work Phone: [facility] 02-13-2024 09:36-0400 Diastolic blood pressure 71 mm[Hg] Fina Singh APRN.SERVICES REP Work Phone: [facility] 02-13-2024 09:36-0400 Heart rate 52 /min Fina Singh APRN.SERVICES REP Work Phone: [facility] 02-13-2024 09:36-0400 Respiratory rate 18 /min Fina Singh APRN.SERVICES REP Work Phone: [facility] 02-13-2024 09:36-0400 SaO2% (BldA) [Mass fraction] 98 % Fina Singh APRN.SERVICES REP Work Phone: [facility] 02-13-2024 09:36-0400 Systolic blood pressure 111 mm[Hg] Fina Singh APRN.SERVICES REP Work Phone: [facility] 12-10-2023 07:55-0400 Body mass index (BMI) [Ratio] 28.28 kg/m2 Heidi Cunningham APRN.SERVICES REP Work Phone: [facility] 12-10-2023 07:55-0400 Body weight 95.89 kg Heidi Marisa MILLING MACHINE OPERATOR.SERVICES REP Work Phone: [facility] 12-10-2023 07:55-0400 Diastolic blood pressure 66 mm[Hg] Heidi Marisa MILLING MACHINE OPERATOR.SERVICES REP Work Phone: [facility] 12-10-2023 07:55-0400 Heart rate 59 /min Heidi Marisa MILLING MACHINE OPERATOR.SERVICES REP Work Phone: [facility] 12-10-2023 07:55-0400 Respiratory rate 16 /min Heidi Marisa MILLING MACHINE OPERATOR.SERVICES REP Work Phone: [facility] 12-10-2023 07:55-0400 SaO2% (BldA) [Mass fraction] 97 % Heidi Marisa MILLING MACHINE OPERATOR.SERVICES REP Work Phone: [facility] 12-10-2023 07:55-0400 Systolic blood pressure 118 mm[Hg] Heidi Marisa MILLING MACHINE OPERATOR.SERVICES REP Work Phone: [facility] 09-02-2023 17:11-0400 Body height 184.2 cm Brent Pepper MD Work Phone: [facility] 09-02-2023 17:11-0400 Body temperature 98.01 [degF] Brent Pepper MD Work Phone: [facility] 09-02-2023 17:11-0400 Body weight 97.3 kg Brent Pepper MD Work Phone: [facility] 09-02-2023 17:11-0400 Diastolic blood pressure 68 mm[Hg] Brent Pepper MD Work Phone: [facility] 09-02-2023 17:11-0400 Heart rate 52 /min Brent Pepper MD Work Phone: [facility] 09-02-2023 17:11-0400 Respiratory rate 16 /min Brent Pepper MD Work Phone: [facility] 09-02-2023 17:11-0400 SaO2% (BldA) [Mass fraction] 99 % Brent Pepper MD Work Phone: [facility] 09-02-2023 17:11-0400 Systolic blood pressure 112 mm[Hg] Brent Pepper MD Work Phone: [facility] 12-14-2022 09:41-0400 Diastolic blood pressure 90 mm[Hg] Valentin Tinoco MD Work Phone: [facility] 12-14-2022 09:41-0400 Heart rate 52 /min Valentin Tinoco MD Work Phone: [facility] 12-14-2022 09:41-0400 Respiratory rate 16 /min Valentin Tinoco MD Work Phone: [facility] 12-14-2022 09:41-0400 SaO2% (BldA) [Mass fraction] 97 % Valentin Tinoco MD Work Phone: [facility] 12-14-2022 09:41-0400 Systolic blood pressure 140 mm[Hg] Valentin Tinoco MD Work Phone: [facility] 12-14-2022 08:07-0400 Body temperature 97.7 [degF] Valentin Tinoco MD Work Phone: [facility] 12-14-2022 08:07-0400 Body weight 97.6 kg Valentin Tinoco MD Work Phone: [facility] 11-06-2022 15:32-0400 Body height 188 cm Angela Yogi PA-C Work Phone: [facility] 11-06-2022 15:32-0400 Body temperature 98.01 [degF] Angela Yogi PA-C Work Phone: [facility] 11-06-2022 15:32-0400 Body weight 97.61 kg Angela Yogi PA-C Work Phone: [facility] 11-06-2022 15:32-0400 Diastolic blood pressure 58 mm[Hg] Angela [place] PA-C Work Phone: [facility] 06-09-2023 15:32-0400 Heart rate 57 /min Angela Calix PA-C Work Phone: [facility] 11-06-2022 15:32-0400 SaO2% (BldA) [Mass fraction] 96 % Angela Calix PA-C Work Phone: [facility] 11-06-2022 15:32-0400 Systolic blood pressure 120 mm[Hg] Angela Calix PA-Doug Work Phone: [facility] 08-31-2022 16:59-0400 Body height 185.4 cm Brent Pepper MD Work Phone: [facility] 08-31-2022 16:59-0400 Body weight 97.98 kg Brent Pepper MD Work Phone: [facility] 08-31-2022 16:59-0400 Diastolic blood pressure 70 mm[Hg] Brent Pepper MD Work Phone: [facility] 08-31-2022 16:59-0400 Heart rate 64 /min Bretn Pepper MD Work Phone: [facility] 08-31-2022 16:59-0400 Respiratory rate 16 /min Brent Pepper MD Work Phone: [facility] 08-31-2022 16:59-0400 Systolic blood pressure 114 mm[Hg] Brent Pepper MD Work Phone: [facility] 08-28-2021 18:13-0400 Body height 186.7 cm Brent Pepper MD Work Phone: [facility] 08-28-2021 18:13-0400 Body temperature 97.81 [degF] Brent Pepper MD Work Phone: [facility] 08-28-2021 18:13-0400 Body weight 94.8 kg Brent Pepper MD Work Phone: [facility] 08-28-2021 18:13-0400 Diastolic blood pressure 72 mm[Hg] Brent Pepper MD Work Phone: [facility] 08-28-2021 18:13-0400 Heart rate 53 /min Brent Pepper MD Work Phone: [facility] 08-28-2021 18:13-0400 Respiratory rate 16 /min Brent Pepper MD Work Phone: [facility] 08-28-2021 18:13-0400 Systolic blood pressure 110 mm[Hg] Brent Pepper MD Work Phone: [facility] Encounters Encounter Date Encounter Type Care Provider Facility Start: 12-25-2024 End: 12-25-2024 Patient encounter procedure Nigel Simpson MD Work Phone: [facility] [place] Comment on above: Radicular low back p ain (Primary Dx) Start: 12-25-2024 ambulatory NIGEL SIMPSON Facility :[facility] Start: 09-07-2024 End: 09-07-2024 ambulatory BRENT PEPPER Facility:[facility] Start: 09-07-2024 End: 09-07-2024 Patient encounter procedure Brent Pepper MD Work Phone: [facility] [place] Comment on above: Routine medical exam (Primary Dx); Screening for depression; Encounter for screening examination for other mental health and behavioral disorders; Postsurgical hypothyroidism; LINA on CPAP; Tubular adenoma of colon; Need for vaccination; Impaired fasting glucose Start: 09-07-2024 End: 09-07-2024 Patient encounter status Brent Pepper MD Work Phone: [facility] Start: 09-02-2024 End: 09-02-2024 Follow-up encounter Brent Pepper MD Work Phone: [facility] [place] Start: 09-01-2024 End: 09-01-2024 ambulatory MAEVE ASHFORD Facility:[facility] Start: 08-27-2024 End: 08-28-2024 ambulatory Brent Pepper MD Work Phone: [facility] [place] Comment on above: Lab work Start: 02-13-2024 End: 02-13-2024 ambulatory BRENT PEPPER Facility:[facility] Start: 02-13-2024 End: 02-13-2024 Patient encounter procedure Fina Singh MILLING MACHINE OPERATOR.SERVICES REP Work Phone: [facility] Comment on above: Respiratory infectio n (Primary Dx) Start: 12-10-2023 End: 12-10-2023 Patient encounter procedure Heidi Cunningham MILLING MACHINE OPERATOR.SERVICES REP Work Phone: Neurology Comment on above: LINA on CPAP Start: 12-08-2023 Telephone encounter Heidi echavarria MILLING MACHINE OPERATOR.SERVICES REP Work Phone: Neurology Comment on above: Patient Question Start: 10-04-2023 ambulatory Brent patel MD Work Phone: [facility] [place] Comment on above: Doctors Note Start: 09-02-2023 End: 09-02-2023 Patient encounter procedure Brent Pepper MD Work Phone: [facility] [place] Comment on above: Routine medical exam (Primary Dx); Postsurgical hypothyroidism; LINA on CPAP; Raised seborrheic keratosis; Lower urinary tract symptoms (LUTS) Start: 09-02-2023 End: 09-02-2023 Patient encounter status Brent Pepper MD Work Phone: [facility] Work Phone: Start: 08-28-2023 ambulatory Brent patel MD Work Phone: [facility] [place] Comment on above: Blood Work Start: 12-14-2022 End: 12-14-2022 Subsequent hospital visit by physician Valentin Tinoco MD Work Phone: Ambulatory Surgery Comment on above: Special screening fo r malignant neoplasms, colon [Z12.11] Start: 11-06-2022 End: 11-06-2022 Patient encounter procedure Angela Calix PA-C Work Phone: General Surgery Comment on above: Encounter for screen ing for malignant neoplasm of colon (Primary Dx); History of colonic polyps Start: 08-31-2022 End: 08-31-2022 Patient encounter procedure Brent Pepper MD Work Phone: [facility] [place] Comment on above: Routine medical exam (Primary Dx); Postsurgical hypothyroidism; Need for vaccination; LINA on CPAP; Tubular adenoma of colon; Acute otitis externa of right ear, unspecified type; Impaired fasting glucose; Hypertriglyceridemia Start: 08-31-2022 End: 08-31-2022 Patient encounter status Brent Pepper MD Work Phone: [facility] [place] Start: 08-15-2022 ambulatory Brent patel MD Work Phone: [facility] [place] Comment on above: 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 Start: 08-15-2022 Patient encounter status Piero Pepper MD Work Phone: [facility] [place] Start: 03-27-2022 Telephone encounter Cb membreno PA-C Work Phone: Urology Comment on above: Results Start: 03-26-2022 End: 03-26-2022 Subsequent hospital visit by physician [facility] Work Phone: Radiology Comment on above: Testicular lump [N50 .89] Start: 09-08-2021 ambulatory Brent patel MD Work Phone: [facility] [place] Comment on above: renewal Start: 08-28-2021 End: 08-28-2021 Patient encounter procedure Brent Pepper MD Work Phone: [facility] [place] Comment on above: Routine medical exam (Primary Dx); LINA on CPAP; Tubular adenoma of colon; Postsurgical hypothyroidism Start: 08-28-2021 End: 08-28-2021 Patient encounter status Brent Pepper MD Work Phone: [facility] [place] Start: 08-15-2020 End: 08-15-2020 Discharged Recurring [facility] Procedures Date Procedure Procedure Detail Performing Clinician Start: 09-07-2024 Adult depression scr eening assessment Brent Pepper MD Work Phone: Start: 09-01-2024 Lipid 1996 panel - S aundrea or Plasma Brent Pepper MD Work Phone: Start: 09-02-2023 Adult depression scr eening assessment Fina Singh [employer] Work Phone: Start: 09-02-2023 Lipid 1996 panel - S aundrea or Plasma Brent Pepper MD Work Phone: Start: 12-14-2022 Level iv surg pathol ogy gross&microscopic exam Valentin Tinoco MD Work Phone: Start: 12-14-2022 Colonoscopy flx dx w /collj spec when pfrmd Angela Calix PA-C Work Phone: Start: 12-14-2022 Colonoscopy Valentin nicole MD Work Phone: Start: 08-31-2022 [facility] Control COVI D-19 BIVALENT BOOSTER VACCINE, AGE 12+ YR Brent Pepper MD Work Phone: Start: 08-27-2022 Lipid 1996 panel - S aundrea or Plasma Valentin Tinoco MD Work Phone: Start: 03-26-2022 Dup-scan artl oliver abdl/pel/scrot&/rpr orgn com Cb Reed PA-C Work Phone: Start: 03-26-2022 Us scrotum & contents B randi Reed PA-C Work Phone: Start: 08-28-2021 Adult depression scr eening assessment Brent Pepper MD Work Phone: Start: 08-04-2021 Colonoscopy Brent Espinoza MD Work Phone: Plan of Treatment Date Care Activity Detail Author Start: 10-20-2039 RSV Vaccine (1 - 1-dose 75+ series) RSV Vaccine (1 - 1-dose 75+ series) [facility] Start: 09-07-2034 Urine microalbumin profile DTaP,Tdap,Td Vaccine (3 - Td or Tdap) [facility] Start: 09-01-2029 Lipid panel Lipid Screening [facility] Start: 09-01-2029 Prostate specific antigen measurement Prostate Cancer Screening Discussion [facility] Start: 09-01-2028 Lipid panel Lipid Screening [facility] Start: 09-01-2028 Prostate specific antigen measurement Prostate Cancer Screening Discussion [facility] Start: 09-02-2027 Diabetes Screening Diabetes Screening [facility] Start: 08-28-2027 Lipid 1996 panel - Serum or Plasma Lipid Screening [facility] Start: 08-28-2027 Lipid panel Lipid Screening [facility] Start: 08-28-2027 LIPID SCREEN LIPID SCREEN [facility] Start: 08-28-2027 PROSTATE CANCER SCREENING DISCUSSION PROSTATE CANCER SCREENING DISCUSSION [facility] Start: 08-28-2027 Prostate specific antigen measurement Prostate Cancer Screening Discussion [facility] Start: 09-01-2026 Diabetes Screening Diabetes Screening [facility] Start: 08-16-2026 LIPID SCREEN LIPID SCREEN [facility] Start: 08-16-2026 PROSTATE CANCER SCREENING DISCUSSION PROSTATE CANCER SCREENING DISCUSSION [facility] Start: 12-25-2025 Annual PCP Team Chronic Disease Visit Annual PCP Team Chronic Disease Visit [facility] Start: 12-14-2025 Screening for malignant neoplasm of colon [facility] Start: 09-13-2025 End: 09-13-2025 Patient encounter procedure 09/13/2025 4:00 PM EDT Office Visit [facility] [place] [address] [place] [address] Brent Pepper MD [address] [place], [place] [id number] Physical [facility] [place] Comment on above: Physical Start: 09-07-2025 Annual PCP Team Chronic Disease Visit Annual PCP Team Chronic Disease Visit [facility] Start: 09-07-2025 Anxiety Screening Anxiety Screening [facility] Start: 09-07-2025 Depression Screening Depression Screening [facility] Start: 08-27-2025 DIABETES SCREEN DIABETES SCREEN [facility] Start: 08-27-2025 Diabetes Screening Diabetes Screening [facility] Start: 09-07-2024 End: 09-07-2024 Patient encounter procedure 09/07/2024 5:20 PM EDT Office Visit [facility] [place] [address] [place] [address] Brent Pepper MD [address] [facility] [place] [address] physical [facility] [place] Comment on above: physical Start: 09-01-2024 Annual PCP Team Chronic Disease Visit Annual PCP Team Chronic Disease Visit [facility] Start: 09-01-2024 Anxiety Screening Anxiety Screening [facility] Start: 09-01-2024 Depression Screening Depression Screening [facility] Start: 09-01-2024 Urine microalbumin profile DTaP,Tdap,Td Vaccine (2 - Td or Tdap) [facility] Comment on above: Postponed from 04/27/2022 (Insurance Cov erage) Start: 09-01-2024 End: 09-01-2024 ambulatory 09/01/2024 8:45 AM EDT Results Only [place] [facility] [address] [facility] [place] [address] [place] [facility] Start: 08-28-2024 End: 11-27-2024 Comprehensive metabolic 2000 panel - Serum or Plasma COMPREHENSIVE METABOLIC PANEL Lab Routine Impaired fasting glucose Hypertriglyceridemia Expected: 08/28/2024, Expires: 11/27/2024 [facility] Comment on above: Expected: 08/28/2024, Expires: Start: 08-28-2024 End: 11-27-2024 Hemoglobin A1c in Blood HEMOGLOBIN A1C Lab Routine Impaired fasting glucose Expected: 08/28/2024, Expires: 11/27/2024 [facility] Comment on above: Expected: 08/28/2024, Expires: Start: 08-28-2024 End: 11-27-2024 Lipid 1996 panel - Serum or Plasma LIPID PANEL, FASTING Lab Routine Impaired fasting glucose Hypertriglyceridemia Expected: 08/28/2024, Expires: 11/27/2024 [facility] Comment on above: Expected: 08/28/2024, Expires: Start: 08-28-2024 End: 11-27-2024 PSA/PROSTATE SPECIFIC ANTIGEN SCREENING PSA/PROSTATE SPECIFIC ANTIGEN SCREENING Lab Routine Screening for prostate cancer Expected: 08/28/2024, Expires: 11/27/2024 [facility] Comment on above: Expected: 08/28/2024, Expires: Start: 08-28-2024 End: 11-27-2024 Thyrotropin [Units/volume] in Serum or Plasma THYROID STIMULATING HORMONE Lab Routine Postsurgical hypothyroidism Expected: 08/28/2024, Expires: 11/27/2024 [facility] Work Phone: Comment on above: Expected: 08/28/2024, Expires: Start: 08-16-2024 DIABETES SCREEN DIABETES SCREEN [facility] Start: 01-30-2024 Covid-19 Vaccine () Covid-19 Vaccine () [facility] Start: 01-30-2024 Covid-19 Vaccine () Covid-19 Vaccine () [facility] Start: 12-15-2023 Colonoscopy Colonoscopy [facility] Start: 12-15-2023 Colorectal Cancer Screening Colorectal Cancer Screening [facility] Start: 12-15-2023 Screening for malignant neoplasm of colon [facility] Start: 12-10-2023 End: 12-10-2023 Patient encounter procedure 12/10/2023 8:00 AM EDT Office Visit Neurology [address] [place] [address] Heidi Cunningham, [employer] [address] [place] [address] LINA on CPAP [G47.33] Neurology Comment on above: LINA on CPAP [G47.33] Start: 09-01-2023 ANNUAL PCP TEAM CHRONIC DISEASE VISIT ANNUAL PCP TEAM CHRONIC DISEASE VISIT [facility] Start: 08-30-2023 End: 11-29-2023 Comprehensive metabolic 2000 panel - Serum or Plasma COMP METABOLIC PANEL Lab Routine Hypertriglyceridemia Impaired fasting glucose Expected: 08/30/2023, Expires: 11/29/2023 [facility] Work Phone: Comment on above: Expected: 08/30/2023, Expires: Start: 08-30-2023 End: 11-29-2023 Lipid 1996 panel - Serum or Plasma LIPID PANEL BASIC Lab Routine Hypertriglyceridemia Impaired fasting glucose Expected: 08/30/2023, Expires: 11/29/2023 [facility] Work Phone: Comment on above: Expected: 08/30/2023, Expires: Start: 08-30-2023 End: 11-29-2023 PSA/PROSTSPECAG SCRN PSA/PROSTSPECAG SCRN Lab Routine Screening for prostate cancer Expected: 08/30/2023, Expires: 11/29/2023 [facility] Work Phone: Comment on above: Expected: 08/30/2023, Expires: 4 Start: 08-30-2023 End: 11-29-2023 Thyrotropin [Units/volume] in Serum or Plasma TSH BLD Lab Routine Postsurgical hypothyroidism Expected: 08/30/2023, Expires: 11/29/2023 [facility] Work Phone: Comment on above: Expected: 08/30/2023, Expires: Start: 05-31-2023 Depression Assessment Depression Assessment [facility] Start: 01-29-2023 Covid-19 Vaccine () Covid-19 Vaccine () [facility] Start: 08-28-2022 Adult depression screening assessment DEPRESSION SCREENING [facility] Start: 08-28-2022 ANNUAL PCP TEAM CHRONIC DISEASE VISIT ANNUAL PCP TEAM CHRONIC DISEASE VISIT [facility] Start: 08-18-2022 End: 10-18-2022 Comprehensive metabolic 2000 panel - Serum or Plasma COMP METABOLIC PANEL Lab Routine Routine medical exam Expected: 08/18/2022, Expires: 10/18/2022 [facility] Work Phone: Comment on above: Expected: 08/18/2022, Expires: 3 Start: 08-18-2022 End: 10-18-2022 Lipid 1996 panel - Serum or Plasma LIPID PANEL BASIC Lab Routine Routine medical exam Expected: 08/18/2022, Expires: 10/18/2022 [facility] Work Phone: Comment on above: Expected: 08/18/2022, Expires: 3 Start: 08-18-2022 End: 10-18-2022 PSA/PROSTSPECAG SCRN PSA/PROSTSPECAG SCRN Lab Routine Screening for prostate cancer Expected: 08/18/2022, Expires: 10/18/2022 [facility] Work Phone: Comment on above: Expected: 08/18/2022, Expires: 3 Start: 08-18-2022 End: 10-18-2022 Thyrotropin [Units/volume] in Serum or Plasma TSH BLD Lab Routine Postsurgical hypothyroidism Expected: 08/18/2022, Expires: 10/18/2022 [facility] Work Phone: Comment on above: Expected: 08/18/2022, Expires: 3 Start: 08-04-2022 Colonoscopy COLONOSCOPY [facility] Start: 08-04-2022 COLORECTAL CANCER SCREENING COLORECTAL CANCER SCREENING [facility] Start: 05-31-2022 DEPRESSION ASSESSMENT DEPRESSION ASSESSMENT [facility] Start: 04-27-2022 Urine microalbumin profile [facility] Start: 07-21-2021 COVID-19 VACCINE (4 - Booster for Pfizer series) COVID-19 VACCINE (4 - Booster for Pfizer series) [facility] Start: 05-31-2021 DEPRESSION ASSESSMENT DEPRESSION ASSESSMENT [facility] Start: 2014 Pneumococcal Vaccine: 50+ (1 of 1 - PCV) Pneumococcal Vaccine: 50+ (1 of 1 - PCV) [facility] Start: 2014 SHINGRIX VACCINE (1 of 2) SHINGRIX VACCINE (1 of 2) [facility] Start: 2009 COLOGUARD (FIT-DNA) COLOGUARD (FIT-DNA) [facility] Start: [address] COLONOGRAPHY [facility] Start: 2009 FECAL OCCULT BLOOD FECAL OCCULT BLOOD [facility] Start: 2009 Screening for malignant neoplasm of colon [facility] Start: 2009 SIGMOIDOSCOPY SIGMOIDOSCOPY [facility] Start: 1970 PNEUMOCOCCAL (1 - PCV) PNEUMOCOCCAL (1 - PCV) [facility] Start: 1964 HEPATITIS B (1 of 3 - 3-dose series) HEPATITIS B (1 of 3 - 3-dose series) [facility] End: 12-09-2024 Polysomnogram POLYSOMNOGRAM (PSG) Procedures Routine LINA on CPAP 1 Occurrences starting 12/10/2023 until 12/09/2024 [facility] Work Phone: Comment on above: 1 Occurrences starting 12/10/2023 until 12/09/2024 End: 01-24-2026 XR Lumbar spine 3 Views XR LUMBAR GENERAL 3V AP/LAT/L5-S1 Radiology Routine Radicular low back pain 1 Occurrences starting 12/25/2024 until 01/24/2026 [facility] Work Phone: Comment on above: 1 Occurrences starting 12/25/2024 until 01/24/2026 [facility] Immunizations Immunization Date Immunization Notes Care Provider Fa [facility] 09-07-2024 pneumococcal Conjugate, unspecified formulation Brent Pepper MD Work Phone: [facility] Work Phone: 09-07-2024 pneumococcal conjuga te (PCV20) vaccine, 20 valent (PREVNAR 20) Brent Pepper MD Work Phone: [facility] 09-07-2024 tetanus toxoid, reduced diphtheria toxoid, and acellular pertussis vaccine, adsorbed Brent Pepper MD Work Phone: [facility] 08-31-2022 COVID-19 booster vaccine, age 12+ yr, bivalent (PFIZER-BIONTECH) Brent Pepper MD Work Phone: [facility] Work Phone: 09-05-2020 Covid (Pfizer) [facility] Work Phone: 08-15-2020 Covid (Pfizer) [facility] Work Phone: 04-27-2012 tetanus toxoid, reduced diphtheria toxoid, and acellular pertussis vaccine, adsorbed Brent Pepper MD Work Phone: [facility] Work Phone: Payers Date Payer Category Payer Private Health Insurance [facility] CHO[facility] PLUS [id number] 2021-Present [phone] [address] [place] [address] HMO [id number] 2021 Private Health Insurance [id number] 2021 Unknown [id number] Self-pay UNINSURED COV19 RELATED [id number] Unknown UNINSURED COV19 RELATED [id number] Unknown UNINSURED COV19 RELATED [id number] Social History Date Type Detail Facility Start: 08-15-2013 Tobacco smoking stat [facility] Unknown if ever smoked [facility] Work Phone: Start: 1965 Sex Assigned At Male [facility] Work Phone: Start: 08-08-2015 End: 08-28-2021 Tobacco smoking status ILIS Occasional tobacco smoker [facility] Work Phone: History of tobacco use Cigar Smoker [facility] Work Phone: Start: 08-08-2015 End: 09-02-2023 Tobacco use and exposure Smokeless tobacco non-user [facility] Work Phone: Start: 08-28-2021 End: 12-25-2024 Alcohol intake Current drinker of alcohol (finding) [facility] Start: 08-28-2021 End: 11-06-2022 Alcohol intake [facility] Work Phone: Start: 06-06-2020 End: 08-28-2021 History SDOH Alcohol Frequency 5 [facility] Start: 06-06-2020 End: 08-28-2021 History SDOH Alcohol Std Drinks 1 [facility] Start: 06-06-2020 End: 03-31-2022 History SDOH Social Connections Phone 2 [facility] Start: 08-28-2021 History SDOH Social Connections Living 3 [facility] Start: 08-28-2021 History SDOH Physica l Activity MPS 7 [facility] Start: 06-06-2020 Education 17 [facility] Start: 07-11-2013 End: 07-01-2022 Tobacco Comment rare cigar [facility] Start: 1965 Sex Assigned At Not on file [facility] Start: 08-18-2021 End: 03-24-2022 Exposure to SARS-CoV-2 (event) Not sure [facility] Work Phone: Start: 08-31-2022 End: 09-02-2023 Tobacco smoking status NHIS Ex-smoker [facility] Work Phone: History of tobacco use Current smoker [facility] Work Phone: Start: 08-28-2021 End: 11-06-2022 Social connection and isolation panel [facility] Work Phone: Do you belong to any clubs or organizations such as restoration groups, unions, fraternal or athletic groups, or school groups? No [facility] Work Phone: Are you now , , , , never or living with a partner? [facility] Work Phone: How often to you hav e a drink containing alcohol? 4 or more times a week [facility] Work Phone: How many standard dr inks containing alcohol do you have on a typical day? 1 or 2 [facility] Work Phone: How often do you hav e 6 or more drinks on 1 occasion? Never [facility] Work Phone: How hard is it for y ou to pay for the very basics like food, housing, medical care, and heating Not hard at all [facility] Do you feel stress - tense, restless, nervous, or anxious, or unable to sleep at night because your mind is troubled all the time - these days [OSQ] Only a little [facility] Work Phone: (I/We) worried wheth er (my/our) food would run out before (I/we) got money to buy more. Never true [facility] Goals Date Patient Goal Desired Activity /State Functional Status Date Assessment Result Facility 09-07-2024 Total score [AUDIT-C] 4 09/08/19 25 5:50 PM EDT Brent Pepper MD [facility] 08-03-2019 Are you deaf, or do you have serious difficulty hearing No 08/03/2019 6:29 PM Brent Miller MD No [facility] 08-03-2019 Are you blind, or do you have serious difficulty seeing, even when wearing glasses No 08/03/2019 6:29 PM Brent Mliler MD No [facility] 08-03-2019 Do you have serious difficulty walking or climbing stairs No 08/03/2019 6:29 PM Brent Miller MD No [facility] 08-03-2019 Do you have difficul ty dressing or bathing No 08/03/2019 6:29 PM Brent Miller MD No [facility] 08-03-2019 Because of a physica l, mental, or emotional condition, do you have difficulty doing errands alone such as visiting a physician's office or shopping No 08/03/2019 6:29 PM Brent Miller MD [facility] Mental Status Date Assessment Result Facility 08-03-2019 Because of a physica l, mental, or emotional condition, do you have serious difficulty concentrating, remembering, or making decisions No 08/03/2019 6:29 PM Brent Miller MD No [facility] Clinical Notes 08-13-2016 to 12-25-2024 Nigel Simpson MD - 12/25/2024 6:56 PM EDTPatient Brent Leung MD - 09/07/2024 5:28 PM Fina Webb APRN.[facility] - 02/13/2024 9:38 AM EDT Note Date & Type Note Facility 12-25-2024 Note HNO ID: [id number] Author: NIGEL SIMPSON MD Service: ? Author Type: Physician Type: Progress Notes Filed: 12/25/2024 19:54 Note Text: Kelley Leyva is a 59-year-old male with a history of chronic back pain and sciatica, presenting with acute onset right-sided low back pain radiating to the buttock and thigh. HPI Chronic Back Pain: - History of back problems since 1995, managed with physiotherapy and social worker palliative care. - Diagnosed with severe sciatica in 2017, with MRI showing no disc at L4-L5. - Previously treated with two injections at [facility], providing 8 years of relief. - Recent exacerbation after bending over to hand picker a cat's bowl, described as an electric sensation in the back. - Current pain localized to the right side, starting at the base of the spine and radiating to the buttock and down the thigh to the knee. - Describes pain as spasms, ache, and throb; does not extend below the knee. - No associated numbness or tingling; no pain on the left side. - Increased urinary frequency over the weekend, attributed to high fluid intake and ibuprofen use. - No abdominal pain or issues reported. - Recent chiropractic evaluation with Dr. Colindres included gentle manipulation and exercises; pain worsened after returning to work. - Last imaging for back issues was in 2017. - No history of kidney problems. - Borderline high blood pressure noted, possibly related to current pain and stress. MEDICATIONS: Current Outpatient Medications Medication Sig levothyroxine (SYNTHROID) 150 mcg tablet Take 1 tablet by mouth once daily. Take on empty stomach. For thyroid predniSONE (DELTASONE) 20 mg tablet Take 1 tablet by mouth once daily for 5 days. cyclobenzaprine (FLEXERIL) 10 mg tablet Take 1 tablet by mouth three times a day as needed. No current facility-administered medications for this visit. ALLERGIES: ALLERGIES Allergen Reactions Grass Pollen Pollen PAST MEDICAL HISTORY Diagnosis Date Abscess of head, except face 02/14/2016 Allergic rhinitis due to other allergen Anxiety 09/09/2011 Dyskinesia of esophagus Dysphagia 12/23/2006 Esophageal reflux Esophagitis, unspecified Hypothyroidism Lower urinary tract symptoms (LUTS) 09/02/2023 Lumbago with sciatica, right side 08/13/2016 Nontoxic uninodular goiter LINA (obstructive sleep apnea) 10/23/2011 Personal history of other infectious and parasitic disease [id number] Janel Postsurgical hypothyroidism 12/23/2006 Rhinitis, non-allergic 10/02/2011 Tinnitus of left ear 08/26/2020 Tubular adenoma of colon 12/19/2016 Urinary sys symptom NEC Bladder outlet symptoms PAST SURGICAL HISTORY Procedure Laterality Date COLONOSCOPY 12/07/2016 tubular adenoma, repeat in 3 years COLONOSCOPY 08/04/2021 repeat in 1 year (tubular adenoma) COLONOSCOPY - DIAGNOSTIC 12/14/2022 COLONOSCOPY FLX DX W/COLLJ SPEC WHEN PFRMD 03/25/2020 Colonoscopy 1 year repeat EGD TRANSORAL BIOPSY SINGLE/MULTIPLE 10/10/2010 SEPTOPLASTY/SUBMUCOUS RESECJ W/WO CARTILAGE GRF 1998 Septoplasty FAMILY HISTORY Problem Relation Age of Onset Hypertension Mother Diabetes Mother 84 prediabetes Diabetes Father GI Father Celiac Hypertension Brother Diabetes Maternal Grandfather Social History Tobacco Use Smoking status: Former Types: Cigars Smokeless tobacco: Never Tobacco comments: rare cigar Vaping Use Vaping status: Never Used Substance Use Topics Alcohol use: Yes Alcohol/week: 7.0 standard drinks of alcohol Types: 7 Standard drinks or equivalent per week Drug use: No Reviewed current medications, allergies, past medical history, surgical history, family history and social history today. REVIEW OF SYSTEMS Gastrointestinal: (-) abdominal pain Genitourinary: (+) urinary frequency, (-) flank pain Musculoskeletal: (+) right low back pain, (+) right buttock pain, (+) right thigh pain, (+) right knee pain, (+) muscle spasms Neurological: (-) paresthesias HEALTH MAINTENANCE: Reviewed health maintenance issues today and recommended the following in detail. Shingrix Vaccine(1 of 2) Never done LAB REVIEWED: Labs Tests Imaging (2016) MRI Lumbar Spine: Absent L4-L5 intervertebral disc with [id number] changes. VITALS: BP 148/90 Pulse (!) 58 Wt 98.2 kg (216 lb 6.4 oz) SpO2 97% BMI 28.16 kg/m? Last 4 Encounter Wt Readings: Date: Wt: 12/25/2024 98.2 kg (216 lb 6.4 oz) 09/07/2024 98 kg (216 lb 0.8 oz) 02/13/2024 98 kg (216 lb 0.8 oz) 12/10/2023 95.9 kg (211 lb 6.4 oz) PHYSICAL EXAMINATION: GENERAL: NAD, alert and oriented. appears ucomfortable. SKIN: unremarkable, no rash or skin lesions. EXTREMITIES: Normal, No deformities, No skin discoloration, No edema. NEURO: Awake, alert and oriented x3, cranial nerves II-XII grossly intact, normal gait, no involuntary motions. Normal strength, sensory exam, DTRs +2/4 bilaterally. BACK: Tenderness noted in the lumb (more content not included)... [facility] 12-25-2024 History of Presen t illness Narrative Kelley Leyva is a 59-year-old male with a history of chronic back pain and sciatica, presenting with acute onset right-sided low back pain radiating to the buttock and thigh. HPI Chronic Back Pain: - History of back problems since 1995, managed with physiotherapy and social worker palliative care. - Diagnosed with severe sciatica in 2017, with MRI showing no disc at L4-L5. - Previously treated with two injections at [facility], providing 8 years of relief. - Recent exacerbation after bending over to hand picker a cat's bowl, described as an electric sensation in the back. - Current pain localized to the right side, starting at the base of the spine and radiating to the buttock and down the thigh to the knee. - Describes pain as spasms, ache, and throb; does not extend below the knee. - No associated numbness or tingling; no pain on the left side. - Increased urinary frequency over the weekend, attributed to high fluid intake and ibuprofen use. - No abdominal pain or issues reported. - Recent chiropractic evaluation with Dr. Colindres included gentle manipulation and exercises; pain worsened after returning to work. - Last imaging for back issues was in 2017. - No history of kidney problems. - Borderline high blood pressure noted, possibly related to current pain and stress. MEDICATIONS: Current Outpatient Medications Medication Sig levothyroxine (SYNTHROID) 150 mcg tablet Take 1 tablet by mouth once daily. Take on empty stomach. For thyroid predniSONE (DELTASONE) 20 mg tablet Take 1 tablet by mouth once daily for 5 days. cyclobenzaprine (FLEXERIL) 10 mg tablet Take 1 tablet by mouth three times a day as needed. No current facility-administered medications for this visit. ALLERGIES: ALLERGIES Allergen Reactions Grass Pollen Pollen PAST MEDICAL HISTORY Diagnosis Date Abscess of head, except face 02/14/2016 Allergic rhinitis due to other allergen Anxiety 09/09/2011 Dyskinesia of esophagus Dysphagia 12/23/2006 Esophageal reflux Esophagitis, unspecified Hypothyroidism Lower urinary tract symptoms (LUTS) 09/02/2023 Lumbago with sciatica, right side 08/13/2016 Nontoxic uninodular goiter LINA (obstructive sleep apnea) 10/23/2011 Personal history of other infectious and parasitic disease [id number] [facility] Postsurgical hypothyroidism 12/23/2006 Rhinitis, non-allergic 10/02/2011 Tinnitus of left ear 08/26/2020 Tubular adenoma of colon 12/19/2016 Urinary sys symptom NEC Bladder outlet symptoms PAST SURGICAL HISTORY Procedure Laterality Date COLONOSCOPY 12/07/2016 tubular adenoma, repeat in 3 years COLONOSCOPY 08/04/2021 repeat in 1 year (tubular adenoma) COLONOSCOPY - DIAGNOSTIC 12/14/2022 COLONOSCOPY FLX DX W/COLLJ SPEC WHEN PFRMD 03/25/2020 Colonoscopy 1 year repeat EGD TRANSORAL BIOPSY SINGLE/MULTIPLE 10/10/2010 SEPTOPLASTY/SUBMUCOUS RESECJ W/WO CARTILAGE GRF 1998 Septoplasty FAMILY HISTORY Problem Relation Age of Onset Hypertension Mother Diabetes Mother 84 prediabetes Diabetes Father GI Father Celiac Hypertension Brother Diabetes Maternal Grandfather Social History Tobacco Use Smoking status: Former Types: Cigars Smokeless tobacco: Never Tobacco comments: rare cigar Vaping Use Vaping status: Never Used Substance Use Topics Alcohol use: Yes Alcohol/week: 7.0 standard drinks of alcohol Types: 7 Standard drinks or equivalent per week Drug use: No Reviewed current medications, allergies, past medical history, surgical history, family history and social history today. REVIEW OF SYSTEMS Gastrointestinal: (-) abdominal pain Genitourinary: (+) urinary frequency, (-) flank pain Musculoskeletal: (+) right low back pain, (+) right buttock pain, (+) right thigh pain, (+) right knee pain, (+) muscle spasms Neurological: (-) paresthesias HEALTH MAINTENANCE: Reviewed health maintenance issues today and recommended the following in detail. Shingrix Vaccine(1 of 2) Never done LAB REVIEWED: Labs Tests Imaging (2017) MRI Lumbar Spine: Absent L4-L5 intervertebral disc with [id number] changes. VITALS: BP 148/90 Pulse (!) 58 Wt 98.2 kg (216 lb 6.4 oz) SpO2 97% BMI 28.16 kg/m Last 4 Encounter Wt Readings: Date: Wt: 12/25/2024 98.2 kg (216 lb 6.4 oz) 09/07/2024 98 kg (216 lb 0.8 oz) 02/13/2024 98 kg (216 lb 0.8 oz) 12/10/2023 95.9 kg (211 lb 6.4 oz) PHYSICAL EXAMINATION: GENERAL: NAD, alert and oriented. appears ucomfortable. SKIN: unremarkable, no rash or skin lesions. EXTREMITIES: Normal, No deformities, No skin discoloration, No edema. NEURO: Awake, alert and oriented x3, cranial nerves II-XII grossly intact, normal gait, no involuntary motions. Normal strength, sensory exam, DTRs +2/4 bilaterally. BACK: Tenderness noted in the lumbar region. Right-sided pain radiating from the lower back to the buttock and down the thigh to the knee. Negative straight leg raise test bilaterally. ASSESSMENT AND PLAN 1. Radicular low back pain (M54.10) - Acute exacerbation of chronic lumbar radicular pain, previously well-controlled with epidural steroid injections in 2017. - Pain localized to right lower back, buttock, and posterior thigh to the knee; no numbness, paresthesia, or symptoms below the knee; no bowel or bladder incontinence. - Exam: Negative straight leg raise to 90 degrees; normal strength, sensation, and DTRs 2+ bilaterally. - Order lumbar spine X-ray. - Start prednisone 20 mg PO daily for 5 days. - Start muscle relaxant; advised caution with driving. - Continue ice and heat therapy. - Excused from work 12/26 through 12/29. - Advised to notify clinic if symptoms worsen or do not improve within one week; MRI and further pain management or surgical evaluation may be considered if no improvement. (See patient after visit summary for additional instructions to patient) Nigel Simpson MD Recording using ambient Keego software for draft documentation of the visit was discussed with the patient/authorized marketing development representative; all questions welcomed and answered. Patient/authorized marketing development representative agreed to proceed documented in this encounter [facility] 12-25-2024 Instructions Nigel Simpson MD - 12/25/2024 6:52 PM EDT - Obtain a lumbar spine X-ray this evening; we will notify you when the results are available. - Take prednisone 20 mg by mouth once daily for 5 days to reduce inflammation. - Begin the prescribed muscle relaxant as directed; avoid driving or operating heavy machinery while taking it. - Continue applying ice and heat to your lower back as needed for pain relief. - You are excused from work December 26 through December 29; a work slip has been provided. - If your pain worsens, contact the office immediately. - If you do not notice improvement after one week, schedule a follow-up appointment. - Have your blood pressure checked in one month to monitor for any trends. documented in this encounter [facility] 09-07-2024 Note HNO ID: [id number] Author: BRENT PEPPER MD Service: ? Author Type: Physician Type: Progress Notes Filed: 09/07/2024 18:16 Note Text: This note was created using [employer]. Subjective Patient presents with: Physical Kelley Leyva is a 58 year old male. He felt well in general. Work is physical and he also exercised 2 days per week. His thyroid dose was stable. Lipids improved, and borderline glucose was stable. His obstructive sleep apnea was well controlled, and managed by Dr. Reynoso. His nasal allergies were mainly in the fall and controlled with over the counter Flonase and Zyrtec. His colonoscopy was due next year. He sees Dr. Mireles for optometry. Review of Systems Constitutional: Negative for activity change, fatigue and unexpected weight change. HENT: Positive for tinnitus. Negative for congestion and hearing loss. Eyes: Negative for visual disturbance. Respiratory: Negative for cough, shortness of breath and wheezing. Cardiovascular: Negative for chest pain, palpitations and leg swelling. Gastrointestinal: Negative for abdominal pain, constipation and diarrhea. Genitourinary: Negative for difficulty urinating and dysuria. Musculoskeletal: Negative for arthralgias and back pain. Skin: Negative for color change. Neurological: Negative for dizziness and headaches. Psychiatric/Behavioral: Negative for dysphoric mood and sleep disturbance. The patient is not nervous/anxious. PAST MEDICAL HISTORY Diagnosis Date Abscess of head, except face 02/14/2016 Allergic rhinitis due to other allergen Anxiety 09/09/2011 Dyskinesia of esophagus Dysphagia 12/23/2006 Esophageal reflux Esophagitis, unspecified Hypothyroidism Lower urinary tract symptoms (LUTS) 09/02/2023 Lumbago with sciatica, right side 08/13/2016 Nontoxic uninodular goiter LINA (obstructive sleep apnea) 10/23/2011 Personal history of other infectious and parasitic disease [id number] [facility] Postsurgical hypothyroidism 12/23/2006 Rhinitis, non-allergic 10/02/2011 Tinnitus of left ear 08/26/2020 Tubular adenoma of colon 12/19/2016 Urinary sys symptom NEC Bladder outlet symptoms PAST SURGICAL HISTORY Procedure Laterality Date COLONOSCOPY 12/07/2016 tubular adenoma, repeat in 3 years COLONOSCOPY 08/04/2021 repeat in 1 year (tubular adenoma) COLONOSCOPY - DIAGNOSTIC 12/14/2022 COLONOSCOPY FLX DX W/COLLJ SPEC WHEN PFRMD 03/25/2020 Colonoscopy 1 year repeat EGD TRANSORAL BIOPSY SINGLE/MULTIPLE 10/10/2010 SEPTOPLASTY/SUBMUCOUS RESECJ W/WO CARTILAGE GRF 1998 Septoplasty FAMILY HISTORY Problem Relation Age of Onset Hypertension Mother Diabetes Mother 84 prediabetes Diabetes Father GI Father Celiac Hypertension Brother Diabetes Maternal Grandfather Social History Tobacco Use Smoking status: Former Types: Cigars Smokeless tobacco: Never Tobacco comments: rare cigar Vaping Use Vaping status: Never Used Substance Use Topics Alcohol use: Yes Alcohol/week: 7.0 standard drinks of alcohol Types: 7 Standard drinks or equivalent per week Drug use: No ALLERGIES Allergen Reactions Grass Pollen Pollen Current Outpatient Medications Medication Sig levothyroxine (SYNTHROID) 150 mcg tablet Take 1 tablet by mouth once daily. Take on empty stomach. For thyroid No current facility-administered medications for this visit. Objective BP 110/63 Pulse (!) 54 Resp 16 Ht 186.7 cm (6' 1.5) Wt 98 kg (216 lb 0.8 oz) SpO2 98% BMI 28.12 kg/m? Physical Exam Constitutional: Appearance: Normal appearance. HENT: Head: Normocephalic. Nose: No congestion or rhinorrhea. Eyes: Extraocular Movements: Extraocular movements intact. Conjunctiva/sclera: Conjunctivae normal. Cardiovascular: Rate and Rhythm: Normal rate and regular rhythm. Heart sounds: No murmur heard. No gallop. Pulmonary: Breath sounds: Normal breath sounds. Abdominal: Palpations: Abdomen is soft. Tenderness: There is no abdominal tenderness. Musculoskeletal: General: No tenderness. Normal range of motion. Right lower leg: No edema. Left lower leg: No edema. Lymphadenopathy: Cervical: No cervical adenopathy. Neurological: General: No focal deficit present. Mental Status: He is alert. Gait: Gait normal. Latest Ref Rng 09/01/2024 Protein, Total 6.3 - 8.0 g/dL 7.0 Albumin 3.9 - 4.9 g/dL 4.3 Calcium 8.5 - 10.2 mg/dL 8.9 Bilirubin, Total 0.2 - 1.3 mg/dL 0.8 Alkaline Phosphatase 38 - 113 U/L 59 AST 14 - 40 U/L 22 ALT 10 - 54 U/L 18 Glucose 74 - 99 mg/dL 104 (H) BUN 9 - 24 mg/dL 12 Creatinine 0.73 - 1.22 mg/dL 0.73 Sodium 136 - 144 mmol/L 136 Potassium 3.7 - 5.1 mmol/L 4.3 Chloride 98 - 107 mmol/L 100 CO2 22 - 30 mmol/L 30 Anion Gap 8 - 15 mmol/L 6 (L) eGFR >=60 mL/min/1.73m? 105 Cholesterol, Total <200 mg/dL 170 Triglyceride <150 mg/dL 144 HDL Cholesterol >39 mg/dL 43 Non HDL Cholesterol <130 mg/dL 127 Fasting Time hrs 12 VLDL Cholest (more content not included)... [facility] 09-07-2024 History of Presen t illness Narrative This note was created using [employer]. Subjective Patient presents with: Ale Kelley Leyva is a 58 year old male. He felt well in general. Work is physical and he also exercised 2 days per week. His thyroid dose was stable. Lipids improved, and borderline glucose was stable. His obstructive sleep apnea was well controlled, and managed by Dr. Reynoso. His nasal allergies were mainly in the fall and controlled with over the counter Flonase and Zyrtec. His colonoscopy was due next year. He sees Dr. Mireles for optometry. Review of Systems Constitutional: Negative for activity change, fatigue and unexpected weight change. HENT: Positive for tinnitus. Negative for congestion and hearing loss. Eyes: Negative for visual disturbance. Respiratory: Negative for cough, shortness of breath and wheezing. Cardiovascular: Negative for chest pain, palpitations and leg swelling. Gastrointestinal: Negative for abdominal pain, constipation and diarrhea. Genitourinary: Negative for difficulty urinating and dysuria. Musculoskeletal: Negative for arthralgias and back pain. Skin: Negative for color change. Neurological: Negative for dizziness and headaches. Psychiatric/Behavioral: Negative for dysphoric mood and sleep disturbance. The patient is not nervous/anxious. PAST MEDICAL HISTORY Diagnosis Date Abscess of head, except face 02/14/2016 Allergic rhinitis due to other allergen Anxiety 09/09/2011 Dyskinesia of esophagus Dysphagia 12/23/2006 Esophageal reflux Esophagitis, unspecified Hypothyroidism Lower urinary tract symptoms (LUTS) 09/02/2023 Lumbago with sciatica, right side 08/13/2016 Nontoxic uninodular goiter LINA (obstructive sleep apnea) 10/23/2011 Personal history of other infectious and parasitic disease [id number] [facility] Postsurgical hypothyroidism 12/23/2006 Rhinitis, non-allergic 10/02/2011 Tinnitus of left ear 08/26/2020 Tubular adenoma of colon 12/19/2016 Urinary sys symptom NEC Bladder outlet symptoms PAST SURGICAL HISTORY Procedure Laterality Date COLONOSCOPY 12/07/2016 tubular adenoma, repeat in 3 years COLONOSCOPY 08/04/2021 repeat in 1 year (tubular adenoma) COLONOSCOPY - DIAGNOSTIC 12/14/2022 COLONOSCOPY FLX DX W/COLLJ SPEC WHEN PFRMD 03/25/2020 Colonoscopy 1 year repeat EGD TRANSORAL BIOPSY SINGLE/MULTIPLE 10/10/2010 SEPTOPLASTY/SUBMUCOUS RESECJ W/WO CARTILAGE GRF 1998 Septoplasty FAMILY HISTORY Problem Relation Age of Onset Hypertension Mother Diabetes Mother 84 prediabetes Diabetes Father GI Father Celiac Hypertension Brother Diabetes Maternal Grandfather Social History Tobacco Use Smoking status: Former Types: Cigars Smokeless tobacco: Never Tobacco comments: rare cigar Vaping Use Vaping status: Never Used Substance Use Topics Alcohol use: Yes Alcohol/week: 7.0 standard drinks of alcohol Types: 7 Standard drinks or equivalent per week Drug use: No ALLERGIES Allergen Reactions Grass Pollen Pollen Current Outpatient Medications Medication Sig levothyroxine (SYNTHROID) 150 mcg tablet Take 1 tablet by mouth once daily. Take on empty stomach. For thyroid No current facility-administered medications for this visit. Objective BP 110/63 Pulse (!) 54 Resp 16 Ht 186.7 cm (6' 1.5) Wt 98 kg (216 lb 0.8 oz) SpO2 98% BMI 28.12 kg/m Physical Exam Constitutional: Appearance: Normal appearance. HENT: Head: Normocephalic. Nose: No congestion or rhinorrhea. Eyes: Extraocular Movements: Extraocular movements intact. Conjunctiva/sclera: Conjunctivae normal. Cardiovascular: Rate and Rhythm: Normal rate and regular rhythm. Heart sounds: No murmur heard. No gallop. Pulmonary: Breath sounds: Normal breath sounds. Abdominal: Palpations: Abdomen is soft. Tenderness: There is no abdominal tenderness. Musculoskeletal: General: No tenderness. Normal range of motion. Right lower leg: No edema. Left lower leg: No edema. Lymphadenopathy: Cervical: No cervical adenopathy. Neurological: General: No focal deficit present. Mental Status: He is alert. Gait: Gait normal. Latest Ref Rng 09/01/2024 Protein, Total 6.3 - 8.0 g/dL 7.0 Albumin 3.9 - 4.9 g/dL 4.3 Calcium 8.5 - 10.2 mg/dL 8.9 Bilirubin, Total 0.2 - 1.3 mg/dL 0.8 Alkaline Phosphatase 38 - 113 U/L 59 AST 14 - 40 U/L 22 ALT 10 - 54 U/L 18 Glucose 74 - 99 mg/dL 104 (H) BUN 9 - 24 mg/dL 12 Creatinine 0.73 - 1.22 mg/dL 0.73 Sodium 136 - 144 mmol/L 136 Potassium 3.7 - 5.1 mmol/L 4.3 Chloride 98 - 107 mmol/L 100 CO2 22 - 30 mmol/L 30 Anion Gap 8 - 15 mmol/L 6 (L) eGFR >=60 mL/min/1.73m 105 Cholesterol, Total <200 mg/dL 170 Triglyceride <150 mg/dL 144 HDL Cholesterol >39 mg/dL 43 Non HDL Cholesterol <130 mg/dL 127 Fasting Time hrs 12 VLDL Cholesterol <30 mg/dL 29 TC:HDL Ratio <5.10 3.95 LDL Cholesterol <100 mg/dL 98 LDL:HDL Ratio <2.54 2.28 Hemoglobin A1C 4.3 - 5.6 % 5.2 Estimated Average Glucose mg/dL 103 TSH 0.270 - 4.200 mIU/L 0.857 PSA Screening <2.60 ng/mL 0.57 Legend: (H) High (L) Low Assessment and Plan 1. Routine medical exam - ICD9: V70.0, ICD10: Z00.00 (primary diagnosis) - Counseled on healthy diet and regular exercise - Discussed need for and benefit of weight loss. BMI 28.12 kg/(m^2) - Counseled on alcohol intake and health risks - Patient counseled on and acknowledged vaccine benefits/risks/side effects; VIS provided: Pneumococcal and TdaP 2. Screening for depression - ICD9: V79.0, ICD10: Z13.31 - DEPRESSION SCREENING 3. Encounter for screening examination for other mental health and behavioral disorders - ICD9: V79.8, ICD10: Z13.39 - ANXIETY SCREENING 4. Postsurgical hypothyroidism - ICD9: 244.0, ICD10: E89.0 - Instructed patient on importance of taking on an empty stomach either first thing in the morning or at bedtime. - continue current dose of Synthroid. - LEVOTHYROXINE 150 MCG TABLET 5. LINA on CPAP - ICD9: 327.23, ICD10: G47.33 - Managed by Dr. Reynoso, and well controlled. 6. Tubular adenoma of colon - ICD9: 211.3, ICD10: D12.6 - We reviewed repeat colonoscopy will be due next year, November 2025. 7. Need for vaccination - ICD9: V05.9, ICD10: Z23 - TDAP VACCINE, AGE 7+ YR (ADACEL, BOOSTRIX) - PNEUMOCOCCAL VACCINE, 20 VALENT (PREVNAR 20) 8. Impaired fasting glucose - ICD9: 790.21, ICD10: R73.01 - Low carb diet. Brent Pepper MD documented in this encounter [facility] 02-13-2024 Note HNO ID: [id number] Author: FINA SINGH APRN.SERVICES REP Service: ? Author Type: Nurse Practitioner Type: Progress Notes Filed: 02/13/2024 10:11 Note Text: CC: Patient presents with: Cough: Sore throat, raspy voice from cough, chest full of phlegm x 1 week HPI: Kelley Leyva is a 58 year old male who presents to the office with complaint of head congestion, cough, productive, sore throat, and sinus symptoms for a week. Symptoms are worsening Associated symptoms includes cough. Denies fever, nausea, vomiting , and diarrhea. Treatments tried include nothing so far. with no relief of symptoms. Sick contacts: unknown. History of asthma, frequent episodes of bronchitis, chronic bronchitis, bronchiectasis or COPD: No Smoker: No Seasonal/environmental allergies: No The ROS is otherwise negative. The patient's pmh, medications, allergies, and past visits are reviewed. PHYSICAL EXAM: BP 111/71 Pulse (!) 52 Temp 36.3 ?C (97.3 ?F) Resp 18 Wt 98 kg (216 lb 0.8 oz) SpO2 98% BMI 28.90 kg/m? General appearance: alert, cooperative, pleasant, in no acute distress Head: Normocephalic Eyes: EOM's intact, conjunctiva pink and moist, no icterus, sclera white, non-injected Ears: Right ear: External ear/canal- Normal, TM - clear with good landmarks. Left ear: External ear/canal- Normal, TM - clear with good landmarks Oropharynx:moist without lesions, No erythema, exudates or tonsillar hypertrophy. Heart: Negative. RRR without obvious murmur, gallop, or rubs. No ectopy. Lungs: clear to auscultation, without rales or wheeze, good air exchange PAST MEDICAL HISTORY Diagnosis Date Abscess of head, except face 02/14/2016 Allergic rhinitis due to other allergen Anxiety 09/09/2011 Dyskinesia of esophagus Dysphagia 12/23/2006 Esophageal reflux Esophagitis, unspecified Hypothyroidism Lower urinary tract symptoms (LUTS) 09/02/2023 Lumbago with sciatica, right side 08/13/2016 Nontoxic uninodular goiter LINA (obstructive sleep apnea) 10/23/2011 Personal history of other infectious and parasitic disease [id number] [facility] Postsurgical hypothyroidism 12/23/2006 Rhinitis, non-allergic 10/02/2011 Tinnitus of left ear 08/26/2020 Tubular adenoma of colon 12/19/2016 Urinary sys symptom NEC Bladder outlet symptoms PAST SURGICAL HISTORY Procedure Laterality Date COLONOSCOPY 12/07/2016 tubular adenoma, repeat in 3 years COLONOSCOPY 08/04/2021 repeat in 1 year (tubular adenoma) COLONOSCOPY - DIAGNOSTIC 12/14/2022 COLONOSCOPY FLX DX W/COLLJ SPEC WHEN PFRMD 03/25/2020 Colonoscopy 1 year repeat EGD TRANSORAL BIOPSY SINGLE/MULTIPLE 10/10/2010 SEPTOPLASTY/SUBMUCOUS RESECJ W/WO CARTILAGE GRF 1997 Septoplasty ALLERGIES Grass Pollen and Pollen MEDICATIONS levothyroxine (SYNTHROID) 150 mcg tablet Take 1 tablet by mouth once daily. Take on empty stomach. For thyroid doxycycline (VIBRA-TABS) 100 mg tablet Take 1 tablet by mouth two times a day for 7 days. FAMILY HISTORY Problem Relation Age of Onset Hypertension Mother Diabetes Mother 84 prediabetes Diabetes Father GI Father Celiac Hypertension Brother Diabetes Maternal Grandfather Social History Tobacco Use Smoking status: Former Types: Cigars Smokeless tobacco: Never Tobacco comments: rare cigar Vaping Use Vaping status: Never Used Substance Use Topics Alcohol use: Yes Alcohol/week: 7.0 standard drinks of alcohol Types: 7 Standard drinks or equivalent per week Drug use: No ASSESSMENT/PLAN: 1. Respiratory infection - ICD9: 519.8, ICD10: J98.8 - DOXYCYCLINE HYCLATE 100 MG TABLET Prescription instructions reviewed with patient as applicable. Potential red flag symptoms discussed with the patient. Reviewed appropriate action plan to take if red flag symptoms occur. Patient agreeable to treatment plan. Fina Singh APRN.[facility] 02-13-2024 History of Presen t illness Narrative CC: Patient presents with: Cough: Sore throat, raspy voice from cough, chest full of phlegm x 1 week HPI: Kelley Leyva is a 58 year old male who presents to the office with complaint of head congestion, cough, productive, sore throat, and sinus symptoms for a week. Symptoms are worsening Associated symptoms includes cough. Denies fever, nausea, vomiting , and diarrhea. Treatments tried include nothing so far. with no relief of symptoms. Sick contacts: unknown. History of asthma, frequent episodes of bronchitis, chronic bronchitis, bronchiectasis or COPD: No Smoker: No Seasonal/environmental allergies: No The ROS is otherwise negative. The patient's pmh, medications, allergies, and past visits are reviewed. PHYSICAL EXAM: BP 111/71 Pulse (!) 52 Temp 36.3 C (97.3 F) Resp 18 Wt 98 kg (216 lb 0.8 oz) SpO2 98% BMI 28.90 kg/m General appearance: alert, cooperative, pleasant, in no acute distress Head: Normocephalic Eyes: EOM's intact, conjunctiva pink and moist, no icterus, sclera white, non-injected Ears: Right ear: External ear/canal- Normal, TM - clear with good landmarks. Left ear: External ear/canal- Normal, TM - clear with good landmarks Oropharynx:moist without lesions, No erythema, exudates or tonsillar hypertrophy. Heart: Negative. RRR without obvious murmur, gallop, or rubs. No ectopy. Lungs: clear to auscultation, without rales or wheeze, good air exchange PAST MEDICAL HISTORY Diagnosis Date Abscess of head, except face 02/14/2016 Allergic rhinitis due to other allergen Anxiety 09/09/2011 Dyskinesia of esophagus Dysphagia 12/23/2006 Esophageal reflux Esophagitis, unspecified Hypothyroidism Lower urinary tract symptoms (LUTS) 09/02/2023 Lumbago with sciatica, right side 08/13/2016 Nontoxic uninodular goiter LINA (obstructive sleep apnea) 10/23/2011 Personal history of other infectious and parasitic disease [id number] [facility] Postsurgical hypothyroidism 12/23/2006 Rhinitis, non-allergic 10/02/2011 Tinnitus of left ear 08/26/2020 Tubular adenoma of colon 12/19/2016 Urinary sys symptom NEC Bladder outlet symptoms PAST SURGICAL HISTORY Procedure Laterality Date COLONOSCOPY 12/07/2016 tubular adenoma, repeat in 3 years COLONOSCOPY 08/04/2021 repeat in 1 year (tubular adenoma) COLONOSCOPY - DIAGNOSTIC 12/14/2022 COLONOSCOPY FLX DX W/COLLJ SPEC WHEN PFRMD 03/25/2020 Colonoscopy 1 year repeat EGD TRANSORAL BIOPSY SINGLE/MULTIPLE 10/10/2010 SEPTOPLASTY/SUBMUCOUS RESECJ W/WO CARTILAGE GRF 1998 Septoplasty ALLERGIES Grass Pollen and Pollen MEDICATIONS levothyroxine (SYNTHROID) 150 mcg tablet Take 1 tablet by mouth once daily. Take on empty stomach. For thyroid doxycycline (VIBRA-TABS) 100 mg tablet Take 1 tablet by mouth two times a day for 7 days. FAMILY HISTORY Problem Relation Age of Onset Hypertension Mother Diabetes Mother 84 prediabetes Diabetes Father GI Father Celiac Hypertension Brother Diabetes Maternal Grandfather Social History Tobacco Use Smoking status: Former Types: Cigars Smokeless tobacco: Never Tobacco comments: rare cigar Vaping Use Vaping status: Never Used Substance Use Topics Alcohol use: Yes Alcohol/week: 7.0 standard drinks of alcohol Types: 7 Standard drinks or equivalent per week Drug use: No ASSESSMENT/PLAN: 1. Respiratory infection - ICD9: 519.8, ICD10: J98.8 - DOXYCYCLINE HYCLATE 100 MG TABLET Prescription instructions reviewed with patient as applicable. Potential red flag symptoms discussed with the patient. Reviewed appropriate action plan to take if red flag symptoms occur. Patient agreeable to treatment plan. Fina Singh APRN.ASMITA documented in this encounter [facility] 12-10-2023 Telephone encounter Note Patient completed sleep appointment with RT. Sania Almanzar MA [facility] 12-10-2023 Miscellaneous Notes Patient completed sleep appointment with RT. Sania Almanzar MA Patient returned call and states he uses a DME company [facility] called [employer]. He will be coming to his appt tomorrow with the machine and booklet. Keila Cabezas RN TC to pt with no answer. Please ask pt who his DME company is where he is getting his CPAP from. Sherice Sorto LPN documented in this encounter [facility] 12-10-2023 History of Presen t illness Narrative Images from the original note were not included. [facility] New Patient Evaluation PATIENT NAME: Kelley Leyva DATE OF SERVICE: December 09, 2023 CONSULTING PROVIDER: Brent Pepper [id number] [facility] [address] REASON FOR CONSULT: Brent Pepper sends the patient for an opinion about LINA on CPAP. My findings and recommendations will be transmitted electronically via shared medical record to the consulting provider. HPI: Kelley Leyva is a 58 year old male. Sleep-related history: LINA, overall moderate exacerbated to severe in REM sleep, diagnosed [address] Reynoso. Still using his original CPAP, was originally 5 cmH2O, he has bumped it up to 8 cmH2O over the years. Now waking up with dry sore throat and chest congestion. The humidification isn't working well on machine. Doesn't use a DME, buys supplies out of pocket. SLEEP-WAKE SCHEDULE Bedtime: by 10 PM. He does not have a hard time falling asleep. Wake time: 530 AM, with an alarm. After falling asleep: he wakes up 2 time(s) per night, because of the need to urinate. On weekends, he maintains the same sleep schedule. Average total sleep time (in a 24 hour period): 7 hours. SLEEP-RELATED DETAILS Preferred sleep position: side Breathing disturbances and other behaviors during sleep: doesn't recall. Bruxism: No GERD or aspiration: Yes if I've overindulged Waking up with heart pounding or racing: No Anxiety or rumination: Yes He does not report having an urge to move the legs in the evening (when resting) that is accompanied or caused by uncomfortable and/or unpleasant sensations in the legs. He has not been told that he has leg kicking during sleep. He denies any history of parasomnias. Daytime sleepiness is not a problem. He does not report sleep paralysis or sleep-related hallucinations or cataplexy WAKE-RELATED DETAILS He works but is not a shift worker. 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 He does not have difficulty with memory or concentration. He denies falling asleep or dozing off when driving. He does not take naps. He does not drink caffeinated beverages. There has not been a recent change in weight. Patient Questionnaires Sleep Scores 08/26/2020 PHQ-9 Score 3 03/22/2022 PROMIS Global Health - (T-Scores - the mean of general population = 50. Five points is a clinically meaningful difference.) Physical T-Score 57.7 Mental T-Score 53.3 PAST TREATMENTS: CPAP (now at 8 esC0N--ki bumped up the pressure) PRIOR SLEEP STUDIES: A Polysomnogram performed on 09/28/2011 revealed an AHI of 17; REM index of 36, PLM index of 0, PLM arousal index of 0, and the oxygen saturation was below 90% for 0% of the study. He had a PAP titration study on 10/21/2011 which showed that a PAP setting of 5cmH2O reduced the AHI to 1.2 and normalized snoring. PAST MEDICAL HISTORY Diagnosis Date Abscess of head, except face 02/14/2016 Allergic rhinitis due to other allergen Anxiety 09/09/2011 Dyskinesia of esophagus Dysphagia 12/23/2006 Esophageal reflux Esophagitis, unspecified Hypothyroidism Lower urinary tract symptoms (LUTS) 09/02/2023 Lumbago with sciatica, right side 08/13/2016 Nontoxic uninodular goiter LINA (obstructive sleep apnea) 10/23/2011 Personal history of other infectious and parasitic disease [id number] [facility] Postsurgical hypothyroidism 12/23/2006 Rhinitis, non-allergic 10/02/2011 Tinnitus of left ear 08/26/2020 Tubular adenoma of colon 12/19/2016 Urinary sys symptom NEC Bladder outlet symptoms PAST SURGICAL HISTORY Procedure Laterality Date COLONOSCOPY 12/07/2016 tubular adenoma, repeat in 3 years COLONOSCOPY 08/04/2021 repeat in 1 year (tubular adenoma) COLONOSCOPY - DIAGNOSTIC 12/14/2022 COLONOSCOPY FLX DX W/COLLJ SPEC WHEN PFRMD 03/25/2020 Colonoscopy 1 year repeat EGD TRANSORAL BIOPSY SINGLE/MULTIPLE 10/10/2010 SEPTOPLASTY/SUBMUCOUS RESECJ W/WO CARTILAGE GRF 1998 Septoplasty ACTIVE PROBLEM LIST Postsurgical hypothyroidism Rhinitis, Non-Allergic Lina On Cpap Tubular Adenoma of Colon Tinnitus of Left Ear Lower Urinary Tract Symptoms (Luts) Allergies As of Date: 12/10/2023 Allergen Noted Reaction GRASS POLLEN 08/19/2005 HAYFEVER [HOMEOPATHIC PRODUCTS] 08/19/2005 POLLEN 08/19/2005 Fully Assessed 12/10/2023 CURRENT MEDICATIONS: levothyroxine (SYNTHROID) 150 mcg tablet Take 1 tablet by mouth once daily. Take on empty stomach. For thyroid Review of Systems Constitutional: Negative for fatigue and recent unintentional weight change. Cardiovascular: Negative for palpitations. Gastrointestinal: Positive for heartburn. Genitourinary: Positive for nocturia. Neurological: Negative for headaches and memory loss. SOCIAL HISTORY: Social History Tobacco Use Smoking status: Former Types: Cigars Smokeless tobacco: Never Tobacco comments: rare cigar Vaping Use Vaping Use: Never used Substance Use Topics Alcohol use: Yes Alcohol/week: 7.0 standard drinks of alcohol Types: 7 Standard drinks or equivalent per week Drug use: No FAMILY HISTORY: FAMILY HISTORY Problem Relation Age of Onset Hypertension Mother Diabetes Mother 84 prediabetes Diabetes Father GI Father Celiac Hypertension Brother Diabetes Maternal Grandfather There is no family history of sleep disorders. PHYSICAL EXAMINATION: Vital Signs: BP 118/66 Pulse (!) 59 Resp 16 Wt 95.9 kg (211 lb 6.4 oz) SpO2 97% BMI 28.28 kg/m PHYSICAL EXAM: General appearance: pleasant, NAD Mental status: alert and oriented, able to provide own history Constitutional: WNL Skin: No visible rashes on exposed skin Neuro: No focal deficits observed, no tremors IMPRESSION/PLAN: G47.33 LINA on CPAP Kelley Leyva is a 58 year old male with PMH of LINA on CPAP, hypothyroidism, rhinitis, LUTS. Since 2012 diagnosis of LINA he has uses CPAP all night every night. Recently his CPAP device isn't maintaining humidity. He is waking with dry sore throat and chest congesting. We discussion option of APAP. Also discussed updating PSG. He is interested in updating sleep study where original study was done at Dr Reynoso's. Will order PSG, order printed for pt and will fax to Dr Reynoso's office. Follow up TBD once we have result. Heidi Cunningham APRN.ASMITA documented in this encounter [facility] 12-09-2023 Telephone encounter Note Patient returned call and states he uses a DME [employer] [facility] called [employer]. He will be coming to his appt tomorrow with the machine and booklet. Keila Cabezas RN [facility] 12-08-2023 Telephone encounter Note TC to pt with no answer. Please ask pt who his DME company is where he is getting his CPAP from. Sherice Sorto LPN [facility] 10-06-2023 Telephone encounter Note Excuse sent. [facility] 10-06-2023 Miscellaneous Notes Excuse sent. documented in this encounter [facility] 09-02-2023 History of Presen t illness Narrative This note was created using Pristones. Subjective Patient presents with: Yearly Exam Kelley Leyva is a 57 year old male. He was doing well, and had no concerns. He was physically active at work and weight was stable. He watched his diet. He was using his CPAP with benefit, and has been ordering supplies online. He was referred to sleep medicine last year, but that office did not return his calls. His thyroid dose had been stable, but labs were still pending at the time of his check up. Review of Systems Constitutional: Negative for fatigue and unexpected weight change. HENT: Negative. Eyes: Negative for visual disturbance. Respiratory: Negative for cough and shortness of breath. Cardiovascular: Negative for chest pain, palpitations and leg swelling. Gastrointestinal: Negative for abdominal pain, constipation and diarrhea. Genitourinary: Positive for decreased urine volume and urgency. Negative for difficulty urinating and dysuria. Musculoskeletal: Negative for arthralgias and back pain. Skin: Mole on back rubbing against clothing. Neurological: Negative. Psychiatric/Behavioral: Negative. PAST MEDICAL HISTORY Diagnosis Date Abscess of head, except face 02/14/2016 Allergic rhinitis due to other allergen Anxiety 09/09/2011 Dyskinesia of esophagus Dysphagia 12/23/2006 Esophageal reflux Esophagitis, unspecified Hypothyroidism Lumbago with sciatica, right side 08/13/2016 Nontoxic uninodular goiter LINA (obstructive sleep apnea) 10/23/2011 Personal history of other infectious and parasitic disease [id number] [facility] Postsurgical hypothyroidism 12/23/2006 Rhinitis, non-allergic 10/02/2011 Tinnitus of left ear 08/26/2020 Tubular adenoma of colon 12/19/2016 Urinary sys symptom NEC Bladder outlet symptoms PAST SURGICAL HISTORY Procedure Laterality Date COLONOSCOPY 12/07/2016 tubular adenoma, repeat in 3 years COLONOSCOPY 08/04/2021 repeat in 1 year (tubular adenoma) COLONOSCOPY - DIAGNOSTIC 12/14/2022 COLONOSCOPY FLX DX W/COLLJ SPEC WHEN PFRMD 03/25/2020 Colonoscopy 1 year repeat EGD TRANSORAL BIOPSY SINGLE/MULTIPLE 10/10/2010 SEPTOPLASTY/SUBMUCOUS RESECJ W/WO CARTILAGE GRF 1998 Septoplasty FAMILY HISTORY Problem Relation Age of Onset Hypertension Mother Diabetes Mother 84 prediabetes Diabetes Father GI Father Celiac Hypertension Brother Diabetes Maternal Grandfather Social History Tobacco Use Smoking status: Former Types: Cigars Smokeless tobacco: Never Tobacco comments: rare cigar Vaping Use Vaping Use: Never used Substance Use Topics Alcohol use: Yes Alcohol/week: 7.0 standard drinks of alcohol Types: 7 Standard drinks or equivalent per week Drug use: No ALLERGIES Allergen Reactions Grass Pollen Hayfever [Homeopath* Pollen Current Outpatient Medications Medication Sig levothyroxine (SYNTHROID) 150 mcg tablet Take 1 tablet by mouth once daily. Take on empty stomach. For thyroid No current facility-administered medications for this visit. Objective Blood Pressure 112/68 Pulse (Abnormal) 52 Temperature 36.7 C (98 F) (Temporal) Respiration 16 Height 184.2 cm (6' 0.5) Weight 97.3 kg (214 lb 8 oz) Oxygen Saturation 99% Body Mass Index 28.69 kg/m Physical Exam Constitutional: General: He is not in acute distress. Appearance: Normal appearance. HENT: Head: Normocephalic. Right Ear: External ear normal. Left Ear: External ear normal. Nose: Nose normal. Mouth/Throat: Mouth: Mucous membranes are moist. Pharynx: Oropharynx is clear. Eyes: Extraocular Movements: Extraocular movements intact. Conjunctiva/sclera: Conjunctivae normal. Cardiovascular: Rate and Rhythm: Regular rhythm. Bradycardia present. Heart sounds: No murmur heard. No gallop. Pulmonary: Effort: No respiratory distress. Breath sounds: No wheezing or rales. Abdominal: General: Bowel sounds are normal. Palpations: Abdomen is soft. There is no mass. Tenderness: There is no abdominal tenderness. Musculoskeletal: General: No tenderness. Normal range of motion. Cervical back: Neck supple. Right lower leg: No edema. Left lower leg: No edema. Lymphadenopathy: Cervical: No cervical adenopathy. Skin: Comments: Scattered seborrheic keratoses of the back. Lesion of concern was seborrheic keratosis, protruding, 8 x 4 mm, left lower back. Neurological: General: No focal deficit present. Mental Status: He is alert. Gait: Gait normal. Psychiatric: Mood and Affect: Mood normal. Behavior: Behavior normal. UNIVERSAL PROTOCOL / SAFETY CHECKLIST Procedure to be Performed: Liquid nitrogen Sign In: A Moment of CARE was completed. No special equipment needed. Patient/Surrogate Stated/Verified: PATIENT VERIFIED(optional for EMERGENT procedures): Patient name, Date of , and The intended procedure Time Out Communication: Consent documented and matches the intended procedure. No relevant labs, photos, and/or imaging studies were applicable for review. Correct side/site marked and visible. No medications required for procedure. Sign Out: SIGN OUT (optional for EMERGENT procedures): No specimen collected. Brent Pepper MD 09/02/2023 [place] PR[employer] MEN OVER 40 INCOMPLETE EMPTYING 2-LESS THAN HALF TIME FREQUENCY 0-NOT AT ALL INTERMITTENCY 4-MORE THAN HALF THE TIME URGE TO URINATE 1-LESS THAN 1X IN 5 WEAK STREAM 5-ALMOST ALWAYS STRAINING 0-NOT AT ALL URINATING AT NIGHT 2-(2) TIMES Total 14 SYMPTOM SCORE 8-19 MODERATE BOTHER SCORE DUE TO URINARY SYMPTOMS 2- MOSTLY SATISFIED Row Labels Depression Screening PHQ-2 Score MICHELLE-2 Total Score 09/02/2023 0 1 Depression screening tool completed and reviewed. Based on score and interview, patient is not at risk for depression. Screening tool discussed with patient, and I recommended no further intervention at this time. Assessment and Plan 1. Routine medical exam - ICD9: V70.0, ICD10: Z00.00 (primary diagnosis) - Counseled on healthy diet and regular exercise - Discussed need for and benefit of weight loss. BMI 28.69 kg/(m^2) 2. Postsurgical hypothyroidism - ICD9: 244.0, ICD10: E89.0 - Instructed patient on importance of taking on an empty stomach either first thing in the morning or at bedtime. - continue current dose of Synthroid. 3. LINA on CPAP - ICD9: 327.23, ICD10: G47.33 - CONSULT TO SLEEP MEDICINE - ADULT 4. Raised seborrheic keratosis - ICD9: 702.19, ICD10: L82.1 Left lower back. - Cryo applied with freeze time of 2 minutes. Patient tolerated this well. Instructions given. 5. Lower urinary tract symptoms (LUTS) - ICD9: 788.99, ICD10: R39.9 - Chronic. We agreed to monitor only. Brent Pepper MD documented in this encounter [facility] 12-14-2022 History of Past i llness Narrative Problem Noted Date Diagnosed Date Resolved Date Special screening for malign ant neoplasms, colon 12/14/2022 09/04/2023 Lumbago with sciatica, right side 08/13/2016 08/09/2018 Impaired fasting glucose 08/13/2016 Abscess of head, except face 02/14/2016 08/13/2016 Anxiety 09/09/2011 08/08/2015 Dysphagia 12/23/2006 09/09/2011 Esophageal reflux 09/23/2006 09/09/2011 Allergic rhinitis due to other allergen 09/09/2011 documented as of this encounter (statuses as of 09/04/2023) [facility] Nurse Note* Ana Bryan RN - 12/14/2022 9:59 AM EDT at bedside to review results of procedure with patient. * Ana Bryan RN - 12/14/2022 9:52 AM EDT Patient out of restroom ,reports he had a little success passing air while in restroom, abdomen softer but is still distended. Advised to eat lightly until air is passed, warm tea, coffee or soupsuntil his abdomen is not tight. * Ana Bryan RN - 12/14/2022 9:46 AM EDT Abdomen still distended and firm to touch, has had sips of juice, no crackers yet. Ambulated to restroom with assist of one to try to pass air in restroom. Denies pain, just feels tight right now. * Ana Bryan RN - 12/14/2022 9:11 AM EDT Patient received in phase II via cart left lateral position, eyes closed but open to verbal stimuli, skin warm and dry, respirationns regular and unlabored, abdomen distended, patient reports it feels alittle tight. Encouraged to pass air rectally while resting. Warm blanket applied to abdomen. Resting comfortably. [facility] History and physical note * Valentin Tinoco MD - 12/14/2022 8:45 AM EDT Images from the original note were not included. HISTORY AND PHYSICAL Kelley Araujo Moearsalan 1965 REFERRING PHYSICIAN: No ref. provider found CHIEF COMPLAINT: Consult (Colonoscopy consult) HPI: The patient is a 57 year old male referred for endoscopy. Kelley notes a history of colon polyps and presents for surveillance colonoscopy. Patient denies any change in bowel habits, weight changes, blood in stools, black tarry stools or abdominal pain. The patient notes no upper GI complaints. Kelley has undergone prior endoscopy. Most recent colonoscopy 08/04/[address] Tinoco with removal of two polyps, 1 year repeat colonoscopy recommended. Patient denies chest pain, shortness of breath or recent hospitalizations. Denies problems with sedation in the past. PAST MEDICAL HISTORY PAST MEDICAL HISTORY Diagnosis Date Abscess of head, except face 02/14/2016 Allergic rhinitis due to other allergen Anxiety 09/09/2011 Dyskinesia of esophagus Dysphagia 12/23/2006 Esophageal reflux Esophagitis, unspecified Hypothyroidism Lumbago with sciatica, right side 08/13/2016 Nontoxic uninodular goiter LINA (obstructive sleep apnea) 10/23/2011 Personal history of other infectious and parasitic disease [id number] [facility] Postsurgical hypothyroidism 12/23/2006 Rhinitis, non-allergic 10/02/2011 Tinnitus of left ear 08/26/2020 Tubular adenoma of colon 12/19/2016 Urinary sys symptom NEC Bladder outlet symptoms PAST SURGICAL HISTORY PAST SURGICAL HISTORY Procedure Laterality Date COLONOSCOPY 12/07/2016 tubular adenoma, repeat in 3 years COLONOSCOPY 08/04/2021 repeat in 1 year (tubular adenoma) COLONOSCOPY FLX DX W/COLLJ SPEC WHEN PFRMD 03/25/2020 Colonoscopy 1 year repeat EGD TRANSORAL BIOPSY SINGLE/MULTIPLE 10/10/2010 SEPTOPLASTY/SUBMUCOUS RESECJ W/WO CARTILAGE GRF 1997 Septoplasty CURRENT MEDICATIONS Current Outpatient Medications Medication Sig levothyroxine (SYNTHROID) 150 mcg tablet Take 1 tablet by mouth once daily. Take on empty stomach. For thyroid No current facility-administered medications for this visit. ALLERGIES: Grass Pollen, Hayfever [Homeopathic Products], and Pollen PERSONAL HISTORY: SOCIAL HISTORY Social History Tobacco Use Smoking status: Former Types: Cigars Smokeless tobacco: Never Tobacco comments: rare cigar Vaping Use Vaping Use: Never used Substance Use Topics Alcohol use: Yes Alcohol/week: 4.0 standard drinks Types: 4 Cans of beer per week Drug use: No FAMILY HISTORY: FAMILY HISTORY FAMILY HISTORY Problem Relation Age of Onset Hypertension Mother Diabetes Father GI Father Celiac Hypertension Brother Diabetes Maternal Grandfather REVIEW OF SYMPTOMS: The review of systems data was entered by the nurse and reviewed by me There are no exam notes on file for this visit. PHYSICAL EXAMINATION: General: The patient is 57 year old male, well nourished, well hydrated in no acute distress. The patient is oriented to time, place, and person. VITALS: Blood pressure 120/58, pulse (!) 57, temperature 36.7 C (98 F), height 188 cm (6' 2), weight 97.6 kg (215 lb 3.2 oz), SpO2 96 %. Body mass index is 27.63 kg/m . HEENT: Normal cephalic, ataumatic, pupils are equally round, sclera are anicteric, mucous membranesare moist, oropharynx is clear. Neck has no masses, asymmetry or lymphadenopathy. Respiratory: Clear to auscultation and percussion. Normal respiratory excursion and pattern. Cardiac: Examination is regular rate and rhythm. Normal S1/S2 Abdominal exam: Soft, nontender, with no palpable masses. No hepatosplenomegaly. No palpable hernias. Extremities: no clubbing, cyanosis or edema. No adenopathy. LABORATORY VALUES: As Noted RADIOLOGIC STUDIES: As Noted Assessment IMPRESSION: history of colon polyps, encounter for surveillance colonoscopy PLAN: I have reviewed my findings with the surgeon. Will plan for lower endoscopy. We discussed therisks and benefits of the planned endoscopy. I have informed the patient that complications can occur including failure to complete the endoscopy and perforation. The patient had the opportunity to ask questions concerning the planned endoscopy. My staff has also explained the procedure to the patient in understandable terms and has given the patient printed material concerning the procedure. Thepatient freely consents to surgery. I plan to use Golytely bowel preparation in addition to 2 full days of clear liquid diet Diagnoses: (Z12.11) Encounter for screening for malignant neoplasm of colon (primary encounter diagnosis) (Z86.010) History of colonic polyps I spent a total of 26 minutes on the date of the service which included preparing to see the patient, [id number] patient care, completing clinical documentation, obtaining and/or reviewing separately obtained history, performing a medically appropriate examination, counseling and educating the pat ient/family/caregiver, and ordering medications, tests, or procedures. Angela Calix PA-C UPDATED HISTORY AND PHYSICAL EXAMINATION SERVICE DATE: 12/14/2022 SERVICE TIME: 8:02 AM PHYSICAL EXAM MUST BE COMPLETED ON ADMISSION The History and Physical (completed in the past 30 days) has been reviewed and the patient has beenexamined. The contents accurately reflect the patient's condition with the following additions or revisions since the H&P was completed. Examination indicates no changes. This H&P can be found in the attached. SIGNATURE: Valentin Tinoco III, MD PATIENT NAME: Kelley Leyva DATE: December 14, 2022 TIME: 8:02 AM [facility] History of Present illness Narrative* Angela Calix PA-C - 11/06/2022 3:42 PM EDT HISTORY AND PHYSICAL Kelley Leyva 1965 REFERRING PHYSICIAN: No ref. provider found CHIEF COMPLAINT: Consult (Colonoscopy consult) HPI: The patient is a 57 year old male referred for endoscopy. Kelley notes a history of colon polyps and presents for surveillance colonoscopy. Patient denies any change in bowel habits, weight changes, blood in stools, black tarry stools or abdominal pain. The patient notes no upper GI complaints. Kelley has undergone prior endoscopy. Most recent colonoscopy 08/04/[address] Tinoco with removal of two polyps, 1 year repeat colonoscopy recommended. Patient denies chest pain, shortness of breath or recent hospitalizations. Denies problems with sedation in the past. PAST MEDICAL HISTORY Diagnosis Date Abscess of head, except face 02/14/2016 Allergic rhinitis due to other allergen Anxiety 09/09/2011 Dyskinesia of esophagus Dysphagia 12/23/2006 Esophageal reflux Esophagitis, unspecified Hypothyroidism Lumbago with sciatica, right side 08/13/2016 Nontoxic uninodular goiter LINA (obstructive sleep apnea) 10/23/2011 Personal history of other infectious and parasitic disease [id number] [facility] Postsurgical hypothyroidism 12/23/2006 Rhinitis, non-allergic 10/02/2011 Tinnitus of left ear 08/26/2020 Tubular adenoma of colon 12/19/2016 Urinary sys symptom NEC Bladder outlet symptoms PAST SURGICAL HISTORY Procedure Laterality Date COLONOSCOPY 12/07/2016 tubular adenoma, repeat in 3 years COLONOSCOPY 08/04/2021 repeat in 1 year (tubular adenoma) COLONOSCOPY FLX DX W/COLLJ SPEC WHEN PFRMD 03/25/2020 Colonoscopy 1 year repeat EGD TRANSORAL BIOPSY SINGLE/MULTIPLE 10/10/2010 SEPTOPLASTY/SUBMUCOUS RESECJ W/WO CARTILAGE GRF 1998 Septoplasty Current Outpatient Medications Medication Sig levothyroxine (SYNTHROID) 150 mcg tablet Take 1 tablet by mouth once daily. Take on empty stomach. For thyroid No current facility-administered medications for this visit. ALLERGIES: Grass Pollen, Hayfever [Homeopathic Products], and Pollen PERSONAL HISTORY: Social History Tobacco Use Smoking status: Former Types: Cigars Smokeless tobacco: Never Tobacco comments: rare cigar Vaping Use Vaping Use: Never used Substance Use Topics Alcohol use: Yes Alcohol/week: 4.0 standard drinks Types: 4 Cans of beer per week Drug use: No FAMILY HISTORY: FAMILY HISTORY Problem Relation Age of Onset Hypertension Mother Diabetes Father GI Father Celiac Hypertension Brother Diabetes Maternal Grandfather REVIEW OF SYMPTOMS: The review of systems data was entered by the nurse and reviewed by me There are no exam notes on file for this visit. PHYSICAL EXAMINATION: General: The patient is 57 year old male, well nourished, well hydrated in no acute distress. The patient is oriented to time, place, and person. VITALS: Blood pressure 120/58, pulse (!) 57, temperature 36.7 C (98 F), height 188 cm (6' 2), weight 97.6 kg (215 lb 3.2 oz), SpO2 96 %. Body mass index is 27.63 kg/m . HEENT: Normal cephalic, ataumatic, pupils are equally round, sclera are anicteric, mucous membranesare moist, oropharynx is clear. Neck has no masses, asymmetry or lymphadenopathy. Respiratory: Clear to auscultation and percussion. Normal respiratory excursion and pattern. Cardiac: Examination is regular rate and rhythm. Normal S1/S2 Abdominal exam: Soft, nontender, with no palpable masses. No hepatosplenomegaly. No palpable hernias. Extremities: no clubbing, cyanosis or edema. No adenopathy. LABORATORY VALUES: As Noted RADIOLOGIC STUDIES: As Noted Assessment IMPRESSION: history of colon polyps, encounter for surveillance colonoscopy PLAN: I have reviewed my findings with the surgeon. Will plan for lower endoscopy. We discussed therisks and benefits of the planned endoscopy. I have informed the patient that complications can occur including failure to complete the endoscopy and perforation. The patient had the opportunity to ask questions concerning the planned endoscopy. My staff has also explained the procedure to the patient in understandable terms and has given the patient printed material concerning the procedure. Thepatient freely consents to surgery. I plan to use Golytely bowel preparation in addition to 2 full days of clear liquid diet Diagnoses: (Z12.11) Encounter for screening for malignant neoplasm of colon (primary encounter diagnosis) (Z86.010) History of colonic polyps I spent a total of 26 minutes on the date of the service which included preparing to see the patient, [id number] patient care, completing clinical documentation, obtaining and/or reviewing separately obtained history, performing a medically appropriate examination, counseling and educating the pat ient/family/caregiver, and ordering medications, tests, or procedures. Angela Calix PA-C documented [facility] History of Present illness Narrative* Brent Pepper MD - 08/31/2022 5:39 PM EDT This note was created using [employer]. Subjective Patient presents with: Yearly Exam Kelley Leyva is a 56 year old male. He felt well and was more active, felt more vigor due to the increased physical demands of his work. He stopped liquor due to weight gain and lost some pounds, but he substituted with regular beer consumption, not excessive. His thyroid was stable. We reviewed his lab results. He saw [facility] and was treated for otitis externa and otitis media. He still had crackling sensation in the right ear. He needed a referral to Dr. Reynoso for obstructive sleep apnea. He was using his CPAP He is scheduled with surgery in October for setting up his repeat colonoscopy. He only wanted his Covid booster today. He may have had hepatitis B vaccination when he worked in [place] in the . Review of Systems Constitutional: Negative for fatigue, fever and unexpected weight change. HENT: Negative for ear discharge. See HPI. Eyes: Negative. Respiratory: Negative for cough, shortness of breath and wheezing. Cardiovascular: Negative for chest pain, palpitations and leg swelling. Gastrointestinal: Negative for abdominal pain, constipation, diarrhea and nausea. Genitourinary: Positive for decreased urine volume. Negative for difficulty urinating and dysuria. Musculoskeletal: Negative for arthralgias and back pain. Neurological: Negative for dizziness and headaches. Psychiatric/Behavioral: Negative. PAST MEDICAL HISTORY Diagnosis Date Abscess of head, except face 02/14/2016 Allergic rhinitis due to other allergen Anxiety 09/09/2011 Dyskinesia of esophagus Dysphagia 12/23/2006 Esophageal reflux Esophagitis, unspecified Hypothyroidism Lumbago with sciatica, right side 08/13/2016 Nontoxic uninodular goiter LINA (obstructive sleep apnea) 10/23/2011 Personal history of other infectious and parasitic disease [id number] [facility] Postsurgical hypothyroidism 12/23/2006 Rhinitis, non-allergic 10/02/2011 Tinnitus of left ear 08/26/2020 Tubular adenoma of colon 12/19/2016 Urinary sys symptom NEC Bladder outlet symptoms PAST SURGICAL HISTORY Procedure Laterality Date COLONOSCOPY 12/07/2016 tubular adenoma, repeat in 3 years COLONOSCOPY 08/04/2021 repeat in 1 year (tubular adenoma) COLONOSCOPY FLX DX W/COLLJ SPEC WHEN PFRMD 03/25/2020 Colonoscopy 1 year repeat EGD TRANSORAL BIOPSY SINGLE/MULTIPLE 10/10/2010 SEPTOPLASTY/SUBMUCOUS RESECJ W/WO CARTILAGE GRF 1998 Septoplasty FAMILY HISTORY Problem Relation Age of Onset Hypertension Mother Diabetes Father GI Father Celiac Hypertension Brother Diabetes Maternal Grandfather Social History Tobacco Use Smoking status: Former Types: Cigars Smokeless tobacco: Never Tobacco comments: rare cigar Vaping Use Vaping Use: Never used Substance Use Topics Alcohol use: Yes Alcohol/week: 4.0 standard drinks Types: 4 Cans of beer per week Drug use: No Current Outpatient Medications Medication Sig levothyroxine (SYNTHROID) 150 mcg tablet Take 1 tablet by mouth once daily. Take on empty stomach. For thyroid No current facility-administered medications for this visit. Objective BP 114/70 (BP Site: Right Arm, BP Position: Sitting, BP Cuff Size: Large Adult) Pulse 64 Resp 16 Ht 185.4 cm (6' 1) Wt 98 kg (216 lb) BMI 28.50 kg/m Physical Exam Constitutional: General: He is not in acute distress. Appearance: He is not ill-appearing. HENT: Head: Normocephalic. Right Ear: There is impacted cerumen. Left Ear: Tympanic membrane normal. Ears: Comments: Right ear canal erythematous with large debris. TM not seen. Cardiovascular: Rate and Rhythm: Normal rate and regular rhythm. Heart sounds: Normal heart sounds. Pulmonary: Breath sounds: Normal breath sounds. Abdominal: Palpations: Abdomen is soft. There is no mass. Tenderness: There is no abdominal tenderness. Musculoskeletal: General: Normal range of motion. Cervical back: Neck supple. Right lower leg: No edema. Left lower leg: No edema. Lymphadenopathy: Cervical: No cervical adenopathy. Neurological: General: No focal deficit present. Mental Status: He is alert. Gait: Gait normal. Psychiatric: Mood and Affect: Mood normal. Component Latest Ref Rng & Units 08/27/2022 Protein, Total 6.3 - 8.0 g/dL 7.1 Albumin 3.9 - 4.9 g/dL 4.3 Calcium 8.5 - 10.2 mg/dL 9.2 Bilirubin, Total 0.2 - 1.3 mg/dL 0.7 Alkaline Phosphatase 38 - 113 U/L 54 AST 14 - 40 U/L 24 ALT 10 - 54 U/L 23 Glucose 74 - 99 mg/dL 106 (H) BUN 9 - 24 mg/dL 14 Creatinine 0.73 - 1.22 mg/dL 0.73 Sodium 136 - 144 mmol/L 140 Potassium 3.7 - 5.1 mmol/L 4.1 Chloride 97 - 105 mmol/L 102 CO2 22 - 30 mmol/L 29 Anion Gap 9 - 18 mmol/L 9 eGFR >=60 mL/min/1.73m 106 Cholesterol, Total <200 mg/dL 186 Triglyceride <150 mg/dL 195 (H) HDL Cholesterol >39 mg/dL 40 Non HDL Cholesterol <130 mg/dL 146 (H) Fasting Time hrs 13 VLDL Cholesterol <30 mg/dL 39 (H) TC:HDL Ratio <5.10 4.65 LDL Cholesterol <100 mg/dL 107 (H) LDL:HDL Ratio <2.54 2.68 (H) PSA Screening <2.60 ng/mL 0.55 TSH 0.270 - 4.200 mIU/L 1.760 Assessment and Plan 1. Routine medical exam - ICD9: V70.0, ICD10: Z00.00 (primary diagnosis) - Counseled on healthy diet and regular exercise - Discussed need for and benefit of weight loss. BMI 28.50 kg/(m^2) - Colorectal cancer screening recommended - Consult already scheduled. - Counseled on limiting alcohol intake to 2 drinks per day - Depression screening tool completed and reviewed with patient. Based on score and interview, patient is not at risk for depression and recommended no further intervention at this time. - Patient was counseled [id number] by myself (the billing provider) for the following immunizations and vaccine components, including side effects: COVID- 19. Patient consents for immunization and understands risks and benefits. A VIS sheet on each immunization was given to the patient. 2. Postsurgical hypothyroidism - ICD9: 244.0, ICD10: E89.0 - continue current dose of Synthroid. - LEVOTHYROXINE 150 MCG TABLET 3. Need for vaccination - ICD9: V05.9, ICD10: Z23 - PFIZER-BIONTECH COVID-19 BIVALENT BOOSTER VACCINE, AGE 12+ YR 4. LINA on CPAP - ICD9: 327.23, V46.8, ICD10: G47.33, Z99.89 Using and benefiting from CPAP. Refer to Dr. Reynoso for recheck. - CONSULT TO SLEEP MEDICINE - ADULT 5. Tubular adenoma of colon - ICD9: 211.3, ICD10: D12.6 See above. 6. Acute otitis externa of right ear, unspecified type - ICD9: 380.10, ICD10: H60.501 Return to [facility]. 7. Impaired fasting glucose - ICD9: 790.21, ICD10: R73.01 Low carb diet. 8. Hypertriglyceridemia - ICD9: 272.1, ICD10: E78.1 - Encouraged following a low carbohydrate, healthy oil intake diet. Brent Pepper MD documented in this encounterTr[facility]10-28-2022 Miscellaneous Notes* Telephone Encounter - Asia Bullock - 03/27/2022 10:08 AM EDT Left message on personal voicemail to let patient know that results were sent through [employer]. If he has any question regarding the results, he was asked to call the [place] office. Asia Bullock * Telephone Encounter - Cb Reed PA-C - 03/27/2022 9:03 AM EDT Please let patient know his Scrotum US was mostly as expected that showed IMPRESSION: Left epididymal head cyst. 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 - Benign Left varicocele.- Varicose Vein in Scrotum - Benign These can be removed surgically if having moderate pain, but most cause no issues and therefore no surgery recommended. CbCHELLE Garcia, SIRISHA CUENCA documented in this encounterTr[facility]10-27-2022 History of Present illness Narrative* Sherice Dunn RDMS - 03/26/2022 7:00 AM EDT Radiology Service Progress Note PATIENT NAME: Kelley Leyva DATE OF SERVICE: March 26, 2022 TIME: 7:58 AM PATIENT IDENTITY VERIFICATION COMPLETED USING TWO (2) IDENTIFIERS: Name and Date of confirmedby patient verbally. FALL SCREENING: Has the patient had 2 falls in the last year or 1 fall with injury or currently using an Ambulatory Assistive Device (Walker, Cane, Wheelchair, Crutches, etc.)? No PATIENT GENDER DATA: Male PATIENT RELEVANT IMPLANT DATA REVIEWED: Not Applicable RADIOLOGY DEPARTMENT: Ultrasound PERIPHERAL IV DATA: Not applicable SIGNED BY: Sherice Dunn RDMS RVT March 26, 2022 7:58 AM documented in this encounterTr[facility]04-11-2022 Miscellaneous Notes* Telephone Encounter - Sumi Matos LPN - 09/08/2021 12:54 PM EDT Patient has been identified by name and date of : Yes Patient phones for refill(s): Pending Prescriptions Disp Refills LEVOTHYROXINE 150 MCG TABLET 30 tablet 11 Sig: Take 1 tablet by mouth once daily. Take on empty stomach. For thyroid POOJA: No Date of last office visit in primary care: 08/28/2021 Yearly: 08/31/2022 Last 2 Encounter Wt Readings: Date: Wt: 08/28/2021 94.8 kg (209 lb) 08/12/2021 95.3 kg (210 lb) Previous labs/tests for medication: Thyroid: TSH Date Value 08/16/2021 0.440 mIU/L 08/19/2020 1.890 uU/mL Please advise. Thank you. Sumi Matos LPN documented in this encounterTr[facility]03-31-2022 History of Present illness Narrative* Brent Pepper MD - 08/28/2021 6:47 PM EDT This note was created using [employer]. Subjective Patient presents with: Physical Kelley Leyva was here for a check up. He was doing well, exercising regularly, and had lost some weight. He used his CPAP nightly and bought CPAP supplies online. His machine was a F&P and he felt it was working well at 10+ years. He had his colonoscopy done but will need a repeat next year due to sub-optimal prep. Review of Systems Constitutional: Negative. HENT: Negative. Eyes: Negative. Respiratory: Negative. Cardiovascular: Positive for leg swelling. Negative for chest pain and palpitations. Minor ankle swelling with prolonged standing. Gastrointestinal: Negative. Genitourinary: Negative. Musculoskeletal: Negative. Neurological: Negative. Psychiatric/Behavioral: Negative. PAST MEDICAL HISTORY Diagnosis Date Abscess of head, except face 02/14/2016 Allergic rhinitis due to other allergen Anxiety 09/09/2011 Dyskinesia of esophagus Dysphagia 12/23/2006 Esophageal reflux Esophagitis, unspecified Lumbago with sciatica, right side 08/13/2016 Nontoxic uninodular goiter LINA (obstructive sleep apnea) 10/23/2011 Personal history of other infectious and parasitic disease [id number] [facility] Postsurgical hypothyroidism 12/23/2006 Rhinitis, non-allergic 10/02/2011 Tinnitus of left ear 08/26/2020 Tubular adenoma of colon 12/19/2016 Urinary sys symptom NEC Bladder outlet symptoms PAST SURGICAL HISTORY Procedure Laterality Date COLONOSCOPY 12/07/2016 tubular adenoma, repeat in 3 years COLONOSCOPY 08/04/2021 repeat in 1 year (tubular adenoma) COLONOSCOPY FLX DX W/COLLJ SPEC WHEN PFRMD 03/25/2020 Colonoscopy 1 year repeat EGD TRANSORAL BIOPSY SINGLE/MULTIPLE 10/10/2010 SEPTOPLASTY/SUBMUCOUS RESECJ W/WO CARTILAGE GRF 1998 Septoplasty FAMILY HISTORY Problem Relation Age of Onset Hypertension Mother Diabetes Father GI Father Celiac Hypertension Brother Diabetes Maternal Grandfather Social History Tobacco Use Smoking status: Current Some Day Smoker Years: 26.00 Types: Cigars Smokeless tobacco: Never Used Tobacco comment: rare cigar Vaping Use Vaping Use: Never used Substance Use Topics Alcohol use: Yes Alcohol/week: 7.0 standard drinks Types: 7 Glasses of Wine (5oz) per week Drug use: No Immunization History Administered Date(s) Administered COVID-19 vaccine, age 12+ yr (PFIZER-BIONTMarkafoni - PURPLE TOP) 08/15/2020 08/15/2020 09/05/2020 05/26/2021 Tdap (Age 7+) 04/27/2012 ALLERGIES Allergen Reactions Grass Pollen Hayfever [Homeopath* Pollen Current Outpatient Medications Medication Sig levothyroxine (SYNTHROID) 150 mcg tablet Take 1 tablet by mouth once daily. Take on empty stomach. For thyroid cetirizine (ZYRTEC) 10 mg tablet Take 1 tablet by mouth as needed (Fall allergies). No current facility-administered medications for this visit. Objective BP 110/72 Pulse (!) 53 Temp 36.6 C (97.8 F) Resp 16 Ht 186.7 cm (6' 1.5) Wt 94.8 kg (209lb) BMI 27.20 kg/m Physical Exam Constitutional: Appearance: Normal appearance. HENT: Head: Normocephalic. Eyes: Conjunctiva/sclera: Conjunctivae normal. Neck: Thyroid: No thyromegaly or thyroid tenderness. Cardiovascular: Rate and Rhythm: Normal rate and regular rhythm. Heart sounds: No murmur heard. No gallop. Pulmonary: Effort: Pulmonary effort is normal. Breath sounds: Normal breath sounds. Abdominal: General: There is no distension. Palpations: Abdomen is soft. Tenderness: There is no abdominal tenderness. Musculoskeletal: General: No tenderness. Normal range of motion. Right lower leg: No edema. Left lower leg: No edema. Lymphadenopathy: Cervical: No cervical adenopathy. Skin: Findings: No lesion. Neurological: General: No focal deficit present. Mental Status: He is alert. Gait: Gait normal. Component Latest Ref Rng & Units 08/16/2021 Protein, Total 6.3 - 8.0 g/dL 7.2 Albumin 3.9 - 4.9 g/dL 4.5 Calcium 8.5 - 10.2 mg/dL 9.4 Bilirubin, Total 0.2 - 1.3 mg/dL 0.5 Alkaline Phosphatase 38 - 113 U/L 58 AST 14 - 40 U/L 19 ALT 10 - 54 U/L 17 Glucose 74 - 99 mg/dL 107 (H) BUN 9 - 24 mg/dL 15 Creatinine 0.73 - 1.22 mg/dL 0.75 Sodium 136 - 144 mmol/L 138 Potassium 3.7 - 5.1 mmol/L 4.0 Chloride 97 - 105 mmol/L 101 CO2 22 - 30 mmol/L 27 Anion Gap 9 - 18 mmol/L 10 eGFR >=60 mL/min/1.73m 106 Cholesterol, Total <200 mg/dL 161 Triglyceride <150 mg/dL 86 HDL Cholesterol >39 mg/dL 46 Non HDL Cholesterol <130 mg/dL 115 Fasting Time hrs 12 VLDL Cholesterol <30 mg/dL 17 TC:HDL Ratio <5.10 3.50 LDL Cholesterol <100 mg/dL 98 LDL:HDL Ratio <2.54 2.13 TSH 0.270 - 4.200 mIU/L 0.440 PSA Screening <2.60 ng/mL 0.54 Assessment and Plan 1. Routine medical exam - ICD9: V70.0, ICD10: Z00.00 (primary diagnosis) - Counseled on healthy diet and regular exercise - Depression screening tool completed and reviewed with patient. Based on score and interview, patient is not at risk for depression and recommended no further intervention at this time. 2. LINA on CPAP - ICD9: 327.23, V46.8, ICD10: G47.33, Z99.89 Using and benefiting from nightly CPAP use. 3. Tubular adenoma of colon - ICD9: 211.3, ICD10: D12.6 Recheck next year. 4. Postsurgical hypothyroidism - ICD9: 244.0, ICD10: E89.0 - continue current dose of Synthroid. Brent Pepper MD documented in this encounterTr[facility]03-16-2017 History of Past illness Narrative* Problem Noted Date Resolved Date Lumbago with sciatica, right side 08/13/2016 08/09/2018 Impaired fasting glucose 08/13/2016 021 Abscess of head, except face 02/14/2016 Anxiety 09/09/2011 08/08/2015 Dysphagia 12/23/2006 09/09/2011 Esophageal reflux 09/23/2006 09/09/2011 Allergic rhinitis due to other allergen 09/09/2011 documented as of this encounter (statuses as of 08/29/2021) [facility] History of Past illness Narrative* Problem Noted Date Resolved Date Lumbago with sciatica, right side 08/13/2016 08/09/2018 Impaired fasting glucose 08/13/20162 021 Abscess of head, except face 02/14/2016 Anxiety 09/09/2011 08/08/2015 Dysphagia 12/23/2006 09/09/2011 Esophageal reflux 09/23/2006 09/09/2011 Allergic rhinitis due to other allergen 09/09/2011 documented as of this encounter (statuses as of 09/08/2021) [facility] History of Past illness Narrative* Problem Noted Date Resolved Date Lumbago with sciatica, right side 08/13/2016 08/09/2018 Impaired fasting glucose 08/13/2016 021 Abscess of head, except face 02/14/2016 Anxiety 09/09/2011 08/08/2015 Dysphagia 12/23/2006 09/09/2011 Esophageal reflux 09/23/2006 09/09/2011 Allergic rhinitis due to other allergen 09/09/2011 documented as of this encounter (statuses as of 03/27/2022) [facility] of Past illness Narrative* Problem Noted Date Resolved Date Lumbago with sciatica, right side 08/13/2016 08/09/2018 Impaired fasting glucose 08/13/20162 021 Abscess of head, except face 02/14/2016 Anxiety 09/09/2011 08/08/2015 Dysphagia 12/23/2006 09/09/2011 Esophageal reflux 09/23/2006 09/09/2011 Allergic rhinitis due to other allergen 09/09/2011 documented as of this encounter (statuses as of 08/18/2022) [facility] of Past illness Narrative* Problem Noted Date Resolved Date Lumbago with sciatica, right side 08/13/2016 08/09/2018 Impaired fasting glucose 08/13/20162 021 Abscess of head, except face 02/14/2016 Anxiety 09/09/2011 08/08/2015 Dysphagia 12/23/2006 09/09/2011 Esophageal reflux 09/23/2006 09/09/2011 Allergic rhinitis due to other allergen 09/09/2011 documented as of this encounter (statuses as of 09/01/2022) [facility] of Past illness Narrative* Problem Noted Date Resolved Date Lumbago with sciatica, right side 08/13/2016 08/09/2018 Impaired fasting glucose 08/13/2016 Abscess of head, except face 02/14/2016 Anxiety 09/09/2011 08/08/2015 Dysphagia 12/23/2006 09/09/2011 Esophageal reflux 09/23/2006 09/09/2011 Allergic rhinitis due to other allergen 09/09/2011 documented as of this encounter (statuses as of 11/16/2022) [facility] of Past illness Narrative* Problem Noted Date Diagnosed Date Resolved Date Lumbago with sciatica, right side 08/13/2016 08/09/2018 Impaired fasting glucose 08/13/2016 Abscess of head, except face 02/14/2016 08/13/2016 Anxiety 09/09/2011 08/08/2015 Dysphagia 12/23/2006 09/09/2011 Esophageal reflux 09/23/2006 09/09/2011 Allergic rhinitis due to other allergen 09/09/2011 documented as of this encounter (statuses as of 04/04/2023) [facility] of Past illness Narrative* Problem Noted Date Diagnosed Date Resolved Date Lumbago with sciatica, right side 08/13/2016 08/09/2018 Impaired fasting glucose 08/13/2016 Abscess of head, except face 02/14/2016 08/13/2016 Anxiety 09/09/2011 08/08/2015 Dysphagia 12/23/2006 09/09/2011 Esophageal reflux 09/23/2006 09/09/2011 Allergic rhinitis due to other allergen 09/09/2011 documented as of this encounter (statuses as of 04/04/2023) [facility] of Past illness Narrative* Problem Noted Date Diagnosed Date Resolved Date Lumbago with sciatica, right side 08/13/2016 08/09/2018 Impaired fasting glucose 08/13/2016 Abscess of head, except face 02/14/2016 08/13/2016 Anxiety 09/09/2011 08/08/2015 Dysphagia 12/23/2006 09/09/2011 Esophageal reflux 09/23/2006 09/09/2011 Allergic rhinitis due to other allergen 09/09/2011 documented as of this encounter (statuses as of 08/30/2023) [facility] noteNo Assessments Information AvailableWGalion [facility] Work Phone: Evaluation note* Diagnosis Routine medical exam- Primary Routine general medical examination at a health care facility LINA on CPAP Obstructive sleep apnea (adult) (pediatric) Tubular adenoma of colon Benign neoplasm of colon Postsurgical hypothyroidism documented [facility] this encounter [facility]* Diagnosis Postsurgical hypothyroidism documented [facility] this encounter [facility]* Diagnosis Postsurgical hypothyroidism- Primary Screening for prostate cancer Special screening for malignant neoplasm of prostate Routine medical exam Routine general medical examination at a health care facility documented [facility] this encounter [facility]* Diagnosis Routine medical exam- Primary Routine general medical examination at a health care facility Postsurgical hypothyroidism Need for vaccination Need for prophylactic vaccination and inoculation against unspecified single disease LINA on CPAP Obstructive sleep apnea (adult) (pediatric) Tubular adenoma of colon Benign neoplasm of colon Acute otitis externa of right ear, unspecified type Impaired fasting glucose Hypertriglyceridemia Pure hyperglyceridemia [facility] Encounter for screening for malignant neoplasm of colon- Primary Special screening for malignant neoplasms, colon History of colonic polyps Personal history of colonic polyps [facility] Diagnosis Encounter for screening for malignant neoplasm of colon- Primary Special screening for malignant neoplasms, colon Special screening for malignant neoplasms, colon [facility] Diagnosis Testicular lump Other specified disorder of male genital organs [facility] Diagnosis Postsurgical hypothyroidism- Primary Screening for prostate cancer Special screening for malignant neoplasm of prostate Hypertriglyceridemia Pure hyperglyceridemia Impaired fasting glucose [facility] Diagnosis Routine medical exam- Primary Routine general medical examination at a health care facility Postsurgical hypothyroidism LINA on CPAP Obstructive sleep apnea (adult) (pediatric) Raised seborrheic keratosis Lower urinary tract symptoms (LUTS) Other symptoms involving urinary system [facility] Diagnosis Bilateral low back pain with bilateral sciatica, unspecified chronicity- Primary [facility] Diagnosis LINA on CPAP- Primary Obstructive sleep apnea (adult) (pediatric) [facility] Diagnosis LINA on CPAP Obstructive sleep apnea (adult) (pediatric) [facility] Diagnosis Respiratory infection- Primary Other diseases of respiratory system, not elsewhere classified [facility] Diagnosis Postsurgical hypothyroidism- Primary Impaired fasting glucose Hypertriglyceridemia Pure hyperglyceridemia Screening for prostate cancer Special screening for malignant neoplasm of prostate [facility] Diagnosis Routine medical exam- Primary Routine general medical examination at a health care facility Screening for depression Encounter for screening examination for other mental health and behavioral disorders Postsurgical hypothyroidism LINA on CPAP Obstructive sleep apnea (adult) (pediatric) Tubular adenoma of colon Benign neoplasm of colon Need for vaccination Need for prophylactic vaccination and inoculation against unspecified single disease Impaired fasting glucose [facility] Diagnosis Radicular low back pain- Primary Thoracic or lumbosacral neuritis or radiculitis, unspecified documented in this encounter [facility] for referral (narrative)* Outpatient Procedure (Routine) - Closed Specialty Diagnoses / Procedures Referred By Marci eubanks Referred To Contact [facility] Diagnoses Special screening for malignant neoplasms, colon Procedures COLONOSCOPY SCREENING COLONOSCOPY FLX DX W/COLLJ SPEC WHEN PFRMD Angela Calix PA-C [address] [place] [address] [facility] [address] [place] [address] Referral ID Status Reason Start Date Expiration Date V isits Requested Visits Authorized [id number] Closed Auto-Generate d Referral 12/14/2022 03/14/2023 1 1 [facility] for referral (narrative)* Diagnostic Procedure Only (Routine) - Closed Specialty Diagnoses / Procedures Referred By Marci eubanks Referred To Contact [facility] Diagnoses Testicular lump Procedures US DOPPLER COMPLETE DUP-SCAN ARTL OLIVER ABDL/PEL/SCROT&/RPR ORGN COM Cb Reed PA-C [address] [place] [address] [place] [address] Referral ID Status Reason Start Date Expiration Date V isits Requested Visits Authorized [id number] Closed Auto-Generate d Referral 03/26/2022 05/30/2022 1 1 * Diagnostic Procedure Only (Routine) - Closed Specialty Diagnoses / Procedures Referred By Marci eubanks Referred To Contact [facility] Diagnoses Testicular lump Procedures US SCROTUM AND CONTENTS US SCROTUM & CONTENTS Cb Reed PA-C [address] [place] [address] [place] [address] Referral ID Status Reason Start Date Expiration Date V isits Requested Visits Authorized [id number] Closed Auto-Generate d Referral 03/24/2022 04/23/2023 1 1 [facility]* Outpatient Procedure (Routine) - Closed Specialty Diagnoses / Procedures Referred By Marci eubanks Referred To Contact [facility] Diagnoses Special screening for malignant neoplasms, colon Procedures COLONOSCOPY SCREENING COLONOSCOPY FLX DX W/COLLJ SPEC WHEN PFRMD Angela Calix PA-C [address] [place] [address] [facility] [address] [place] [address] Referral ID Status Reason Start Date Expiration Date V isits Requested Visits Authorized [id number] Closed Auto-Generate d Referral 12/14/2022 03/14/2023 1 1 [facility] Chief Complaint and Reason for Visit Chief Complaint PFIZER VACCINE Advance Directives No Advanced Directives Records FoundDocuments on File Type Date Recorded Patient Rn Endoscopy Expl anation Advance Directive(s) 08/04/2021 7:04 AM Advance Directive(s) 03/25/2020 7:38 AM Advance Directive(s) 12/07/2016 10:50 AM Reason for Referral Specialty Diagnoses / Procedures Referred By Marci eubanks Referred To Contact Diagnoses LINA on CPAP Procedures CONSULT TO SLEEP MEDICINE - ADULT Brent Pepper MD [address] [place] [address] Referral ID Status Reason Start Date Expiration Date Visits Requested Visits Authorized [id number] Ref Not Required PCP Requested Referral 08/31/2022 08/31/2023 1 1 Specialty Diagnoses / Procedures Referred By Marci eubanks Referred To Contact Diagnoses LINA on CPAP Procedures CONSULT TO SLEEP MEDICINE - ADULT OFFICE/OUTPATIENT [facility] 60 MINUTES Brent Pepper MD [address] [place] [address] Referral ID Status Reason Start Date Expiration Date Visits Requested Visits Authorized [id number] Authorized PCP Requested Referral 09/02/2023 09/01/2024 1 1 Medications Administered Section Inactive Administered Medications - up to 3 most recent administrations Medication Order MAR Action Action Date Dose Rate Site diphenhydrAMINE 12.5-50 mg injection (BENADRYL) 12.5-50 mg, INTRAVENOUS, DIRECTED, Starting on Wed12/14/22 at 0900, Until Wed12/14/22 at 1259, DOSING DIRECTED BY PHYSICIAN FOR PROCEDURAL SEDATION ONLY, Intraprocedure Given 12/14/2022 8:42 AM EDT 50 mg fentaNYL 50 mcg/mL 25-100 mcg injection (SUBLIMAZE) 25-100 mcg, INTRAVENOUS, DIRECTED, Starting on Wed12/14/22 at 0900, Until Wed12/14/22 at 1259, DOSING DIRECTED BY PHYSICIAN FOR PROCEDURAL SEDATION ONLY, Intraprocedure Given 12/14/2022 8:48 AM EDT 50 mcg Given 12/14/2022 8:40 AM EDT 50 mcg lactated ringers iv infusion 30 mL/hr, INTRAVENOUS, CONTINUOUS, Starting on Wed12/14/22 at 0800, Until Wed12/14/22 at 0915, Preprocedure New Bag/Syringe/Bottle 12/14/2022 8:05 AM EDT 30 mL/hr 30 mL/hr Arm, Right midazolam 1-5 mg injection (VERSED) 1-5 mg, INTRAVENOUS, DIRECTED, Starting on Wed12/14/22 at 0900, Until Wed12/14/22 at 1259, DOSING DIRECTED BY PHYSICIAN FOR PROCEDURAL SEDATION ONLY, Intraprocedure Given 12/14/2022 8:45 AM EDT 2 mg Given 12/14/2022 8:40 AM EDT 3 mg Summary Purpose Family History No Family History Records Found Additional Source Comments Source Comments (unrecognize d section and content) In the event this informatio n is protected by the Federal Confidentiality of Alcohol and Drug Abuse Patient Records regulations: The Federal rules restrict any use of the information to criminally investigate or prosecute any alcohol or drug abuse patient.[facility] the event this information is protected by the Federal Confidentiality of Alcohol and Drug Abuse Patient Records regulations: The Federal rules restrict any use of the information to criminally investigate or prosecute any alcohol or drug abuse patient.[facility] the event this information is protected by the Federal Confidentiality of Alcohol and Drug Abuse Patient Records regulations: The Federal rules restrict any use of the information to criminally investigate or prosecute any alcohol or drug abuse patient.[facility] the event this information is protected by the Federal Confidentiality of Alcohol and Drug Abuse Patient Records regulations: The Federal rules restrict any use of the information to criminally investigate or prosecute any alcohol or drug abuse patient.[facility] the event this information is protected by the Federal Confidentiality of Alcohol and Drug Abuse Patient Records regulations: The Federal rules restrict any use of the information to criminally investigate or prosecute any alcohol or drug abuse patient.[facility] the event this information is protected by the Federal Confidentiality of Alcohol and Drug Abuse Patient Records regulations: The Federal rules restrict any use of the information to criminally investigate or prosecute any alcohol or drug abuse patient.[facility] the event this information is protected by the Federal Confidentiality of Alcohol and Drug Abuse Patient Records regulations: The Federal rules restrict any use of the information to criminally investigate or prosecute any alcohol or drug abuse patient.[facility] the event this information is protected by the Federal Confidentiality of Alcohol and Drug Abuse Patient Records regulations: The Federal rules restrict any use of the information to criminally investigate or prosecute any alcohol or drug abuse patient.[facility] the event this information is protected by the Federal Confidentiality of Alcohol and Drug Abuse Patient Records regulations: The Federal rules restrict any use of the information to criminally investigate or prosecute any alcohol or drug abuse patient.[facility] the event this information is protected by the Federal Confidentiality of Alcohol and Drug Abuse Patient Records regulations: The Federal rules restrict any use of the information to criminally investigate or prosecute any alcohol or drug abuse patient.[facility] the event this information is protected by the Federal Confidentiality of Alcohol and Drug Abuse Patient Records regulations: The Federal rules restrict any use of the information to criminally investigate or prosecute any alcohol or drug abuse patient.[facility] the event this information is protected by the Federal Confidentiality of Alcohol and Drug Abuse Patient Records regulations: The Federal rules restrict any use of the information to criminally investigate or prosecute any alcohol or drug abuse patient.[facility] the event this information is protected by the Federal Confidentiality of Alcohol and Drug Abuse Patient Records regulations: The Federal rules restrict any use of the information to criminally investigate or prosecute any alcohol or drug abuse patient.[facility] the event this information is protected by the Federal Confidentiality of Alcohol and Drug Abuse Patient Records regulations: The Federal rules restrict any use of the information to criminally investigate or prosecute any alcohol or drug abuse patient.[facility] the event this information is protected by the Federal Confidentiality of Alcohol and Drug Abuse Patient Records regulations: The Federal rules restrict any use of the information to criminally investigate or prosecute any alcohol or drug abuse patient.[facility] the event this information is protected by the Federal Confidentiality of Alcohol and Drug Abuse Patient Records regulations: The Federal rules restrict any use of the information to criminally investigate or prosecute any alcohol or drug abuse patient.[facility] the event this information is protected by the Federal Confidentiality of Alcohol and Drug Abuse Patient Records regulations: The Federal rules restrict any use of the information to criminally investigate or prosecute any alcohol or drug abuse patient.[facility] the event this information is protected by the Federal Confidentiality of Alcohol and Drug Abuse Patient Records regulations: The Federal rules restrict any use of the information to criminally investigate or prosecute any alcohol or drug abuse patient.[facility] Reason for Visit (unrecogniz ed section and content) Reason Comments Physical Reason Comments Results Reason Comments Yearly Exam Reason Comments Consult Colonoscopy consult Reason Comments Radiology US Specialty Diagnoses / Procedures Referred By Contac t Referred To Contact [facility] Diagnoses Testicular lump Procedures US SCROTUM AND CONTENTS US SCROTUM & CONTENTS Cb Reed PA-C [address] [place] [address] [place] [address] Referral ID Status Reason Start Date Expiration Date V isits Requested Visits Authorized [id number] Closed Auto-Generate d Referral 03/24/2022 04/23/2023 1 1 Reason Comments Patient Question Reason Comments New Patient New patient reported last 2013, c/o nightly CPAP use dry mouth. Specialty Diagnoses / Procedures Referred By Marci eubanks Referred To Contact Diagnoses LINA on CPAP Procedures CONSULT TO SLEEP MEDICINE - ADULT OFFICE/OUTPATIENT [facility] 60 MINUTES Brent Pepper MD [address] [place] [id number] Referral ID Status Reason Start Date Expiration Date V isits Requested Visits Authorized [id number] Closed PCP Requested Referral 09/02/2023 09/01/2024 1 1 Reason Comments Cough Sore throat, raspy v oice from cough, chest full of phlegm x 1 week Care Teams (unrecognized sec tion and content) [employer] Relationship Specialty Start Date End Date Brent Pepper MD [facility] [place] [address] PCP - General 09/12/03 [employer] Relationship Specialty Start Date End Date Brent Pepper MD [address] [place] [address] PCP - General 09/12/03 [employer] Relationship Specialty Start Date End Date Brent Pepper MD [facility] [place] [address] PCP - General 09/12/03 [employer] Relationship Specialty Start Date End Date Brent Pepper MD [address] [place] [address] PCP - General 09/12/03 [employer] Relationship Specialty Start Date End Date Brent Pepper MD [address] [place] [address] PCP - General 09/12/03 [employer] Architect Relationship Specialty Start Date End Date Brent Pepper MD [address] [place] [address] PCP - General 09/12/03 [employer] 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 Relationship Specialty Start Date End Date Brent Pepper MD [address] [place] [address] PCP - General 09/12/03 [employer] 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 Relationship Specialty Start Date End Date Brent Pepper MD [address] [place] [address] PCP - General 09/12/03 [employer] 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 Relationship Specialty Start Date End Date Brent Pepper MD [address] [place] [address] PCP - General 09/12/03 [employer] Architect Relationship Specialty Start Date End Date Brent Pepper MD [address] [place] [address] PCP - General 09/12/03 [employer] 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 Relationship Specialty Start Date End Date Brent Pepper MD [address] [place] [address] PCP - General 09/12/03 [employer] 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 Relationship Specialty Start Date End Date Brent Pepper MD [address] [place] [address] PCP - General 09/12/03 [employer] Relationship Specialty Start Date End Date Brent Pepper MD [address] [place] [address] PCP - General 09/12/03 Maeve Ashford, MILLING MACHINE OPERATOR.SERVICES REP [address] [facility] [place] [address] [employer] Internal Medicine 05/08/24 [employer] Relationship Specialty Start Date End Date Brent Pepper MD [address] [facility] [place] [address] PCP - General 09/12/03 Maeve Ashford, MILLING MACHINE OPERATOR.SERVICES REP [address] [place] [address] [employer] Belt Puncher Internal Medicine 05/08/24 [employer] Architect Relationship Specialty Start Date End Date Brent Pepper MD [address] [place] [address] PCP - General 09/12/03 Maeve Ashford, MILLING MACHINE OPERATOR.SERVICES REP [address] [facility] [place] [address] Cartridge Belt Puncher Internal Medicine 05/08/24 [employer] Architect Relationship Specialty Start Date End Date Brent Pepper MD [address] [place] [address] PCP - General 09/12/03 Maeve Ashford, MILLING MACHINE OPERATOR.SERVICES REP [address] [place] [address] [facility] Internal Medicine 05/08/24 (unrecognized sect ion and content) No Status Records Found INFORMATION SOURCE (unrecogn ized section and content) DATE CREATED AUTHOR 12/27/2024 [facility] FOR RECORDS PERTAINING TO PATIENTS WHO ARE OR HAVE BEEN ENROLLED IN A CHEMICAL DEPENDENCY/SUBSTANCEABUSE PROGRAM, SOME INFORMATION MAY BE OMITTED. This clinical summary was aggregated from multiple sources. Caution should be exercised in using it in the provision of clinical care. This summary normalizes information from multiple sources, and as a consequence, information in this document may materially change the coding, format and clinical context of patient data. In addition, data may be omitted in some cases. CLINICAL DECISIONS SHOULD BE BASED ON THE PRIMARY CLINICAL RECORDS. [facility]. provides no warranty or guarantee of the accuracy or completeness of information in this document.
--- NOTE | 2024-12-27 01:25 | RAD_ITS ---
PROCEDURE: LUMBAR SPINE 2 OR 3 VIEWS 12/27/2024 REASON FOR EXAM: PAIN/INJURY TECHNIQUE: LUMBAR SPINE 2 OR 3 VIEWS COMPARISON: No FINDINGS: Diffuse facet arthritis. Relative disc space preservation. No acute bone or soft tissue pathology. RAD/Lumbar Spine 2 or 3 Views IMPRESSION: No acute injury Reading Location: [place] [address]
[2024-12-27] MEDS: HYDROmorphone 0.5 MG/0.5 ML SYRINGE IV (02:37)
[2024-12-27 03:00] VITALS: BP 140/78; PULSE 52; RESP 18; TEMP 36.8; O2SAT 100
== END 2024-12-27 03:12 | disposition home or self-care (01) ==
PROVIDERS: Emergency Provider Emergency Medicine; PCP Family Medicine; Visit Provider Emergency Medicine
DX: M54.41 Lumbago with sciatica, right side (principal); X50.0XXA Overexertion from strenuous movement or load, initial encounter
CPT/HCPCS: 72100; 96374; 96375; 99285; A4216; J2405

== ENCOUNTER 2025-01-26 16:30 | Outpatient (RCR) | payer OTHER, SELFPAY ==
--- NOTE | 2025-01-09 10:56 | HP.PTEVAL ---
Patient's Visit Information Visit Information Visit Information: KELLEY RENE is a 59 year old M referred to Physical Therapy by NEMO Berry with a diagnosis of R ITB syndrome. Date of Evaluation: 01/09/25 Physical Therapist: Murray Lamar, DPT, OCS, CSCS Visit Plan Frequency: 2-3x /Week Duration: 4-6 Weeks Plan: 3x/week for 4-6 weeks IE HEP: piriformis, ITB, quad stretches 30" 4x 1-2x/day and LAQ throughout day, also to walk short frequent and avoid aggravation. HO given. Treat with MH and STM to R itb and priformis please. Then strtch ITB and piriformis, then mat to functional hip and knee and core strEngth Subjective Subjective: I have a bad back, chronic DDD and stenosis. Had injections [address] Mandel. Lives with that and does some ex. 6 weeks ago was lifting a heavier unit and hurt back. Doing stretches he was taught and doing a modified plank and felt lateral R hip pain and snapping and went to ER the next day as he was unable to sit or stand due to R knee pain. Sent to [place] [facility] for back and knee. Has been resting and icing and that did not help. Yesterday had full round of tests. Most pain is R quad and inside of knee, medially and laterally at the hip. No pain below the knee. Not improving with RICE. Not able to sleep unless takes oxycodone. Mostly knee pain. Has brace for knee h which helps minimal home mobility. Cannot drive car. Getting in and out of car is difficult. Now back feels good and no pain and full ROM, knee is the problem. can't lie in beed or walk normally due to knee. Off work for two weeks but one week was planned vacation. Cannot sit in airplane though. No current exercises. used to do knee to chest adn modified plank, prone opposite UE/LE Dr. Mandel 8 yrs ago for injection which helped. doctor thinks ITB is sprained. Pain R leg: Pain Intensity (Out of 10): 4 Pain Intensity Range: 0 and 9 Comment: knee, taking pain meds Objective Objective: Walks into PT with brace on R knee stiff adn pointed out and not bending antalgic. I. Trasnfers without bending R knee. I bed and chair. Walks out with better gait after stretching today and feeling better. Lumb ar AROM wFL today adn without pain or symptoms. Sensation WNL LE, no numb ness reflexes 1/3 patella adn achilles B. strength LE quad R and hip flexion 4/5 , others 4+/5, some discomfort with those tests but no obvious myotomal problems. ITB, HS and quad mod tight on R and min tight on L. tender to palpation R ITB and piriformis area moderately. PA pressuree is not painful today in lumbar or T/S - SLR, - Slump, - instability. - bounce home, - patellar grind, - ant drawer, - valgus and varus all R side. patella move well B and without pain Balance/Special Test Scores Lower Extremity Functional Score: 18 Goals Goal 1:: Patient walk into and out of PT without antalgia normally and ablee to climb steps without pain Goal Time Frame: 4-6 Weeks Goal 2:: Pain in r knee 90% better at 1/10 at worst Goal Time Frame: 4-6 Weeks Goal 3:: sleep without waking at night due to pain Goal Time Frame: 4-6 Weeks Goal 4:: Plan to return to work without pain Goal Time Frame: 4-6 Weeks Goal 5:: 45 LEFS Goal Time Frame: 4-6 Weeks Rehabilitation Potential Physical Therapy Diagnosis: soft tissue tenderness and pain R ITB/piriformis effecting sleep adn work fucnitons and activity. Rehabilitation Potential: Fair Anticipated Interventions Patient/Client Instruction: Educate patient on: Condition and Plan of Care For the Purpose of:: To decrease pain, To increase ROM, To improve nutrient delivery to tissue, To improve muscle performance and motor function, To increase tolerance to activity/condition/position, To improve ability of physical actions for home/community/work/leisure and To improve gait and locomotor functions Therapeutic Exercise to Include: Strength training, Postural training, Flexibilty training, Passive ROM, Active ROM and Dynamic Lumbar Stabilization For the Purpose of:: To decrease pain, To increase ROM, To improve nutrient delivery to tissue, To improve muscle performance and motor function, To increase tolerance to activity/condition/position, To improve ability of physical actions for home/community/work/leisure and To improve gait and locomotor functions Manual Therapy Techniques to Include: Mobilization, Passive ROM and Soft tissue mobilization For the Purpose of:: To decrease pain, To decrease swelling/inflammation, To increase ROM and To improve nutrient delivery to tissue Thermo therapy (hot pack): Yes For the Purpose of:: To increase ROM and To improve nutrient delivery to tissue Text: Thank you for the opportunity to evaluate your patient. For Medicare and Medicare HMO plans, please review the plan of care and approve it. It will need to be FAXED BACK to us at [phone] for Medicare purposes. For Medicare only, by signing this I certify the plan of care. Please let me know if there are questions or concerns regarding this plan of care. Physician Signature: Date:
--- NOTE | 2025-03-27 10:48 | HP.PTDCSUM_ITS ---
Discharge Summary D/C summary: It has been my pleasure to treat KELLEY RENE referred by Lorna See NP- C, with the diagnosis of R ITB syndrome for a total of 8 visit(s). Discharge Date: Please see the following information for a summary of their discharge status. Subjective Subjective: Doing well - really coming along. Pain R leg: Pain Intensity (Out of 10): 2 Overall Improvement % Improvement: 80 Objective Objective/Function: Pt feels ex's were very beneficial today and worked the right muscles. Pt thankful for help inPT. Did reccomend that pt not squat too far with squat but more aim his bottom to a chair. See HEP below given today. Pt Goals Goal 1:: Patient walk into and out of PT without antalgia normally and ablee to climb steps without pain Goal Progress: Goal Met Goal 2:: Pain in r knee 90% better at 1/10 at worst Goal Progress: 80% Goal 3:: sleep without waking at night due to pain Goal Progress: Goal Met Goal 4:: Plan to return to work without pain Goal Progress: plan next week Goal 5:: 45 LEFS Goal Progress: Goal Met Plan Plan: Pt d/c at this time.Please teach quad strength for HEP next session with pics... SLR flexion, LAQ and SKF with band squats and step ups give pics and to be discharged after next session unless does not tolerate or doctor visit goes awry. D/C Information d/c sentence: If there are questions or concerns regarding this patient's physical therapy, please feel free to call me at [phone]. Thank you for the referral of this patient. Sincerely, Murray Lamar, DPT, OCS, CSCS Balance/Gait/Functional tests Balance/Special Test Scores Lower Extremity Functional Score: 50 Improvement % Improvement: 80
== END 2025-01-26 19:00 | disposition home or self-care (01) ==
LOC: PT 16:30
PROVIDERS: PCP Family Medicine; Referring Provider Nurse Practitioner Family; Visit Provider Nurse Practitioner Family
DX: M76.31 Iliotibial band syndrome, right leg (principal); M25.561 Pain in right knee; M79.18 Myalgia, other site; M54.16 Radiculopathy, lumbar region
CPT/HCPCS: 97110; 97140; 97162; 97530

== ENCOUNTER → 2025-01-31 | Outpatient (CLI) | payer OTHER, SELFPAY ==
--- NOTE | 2025-01-31 10:24 | MRI_ITS ---
PROCEDURE: SPINE LUMBAR (ROUTINE) 01/31/2025 REASON FOR EXAM: RIGHT RADICULOPATHY, DDD TECHNIQUE: Procedure Code: MRISPL Modality: MR Procedure: SPINE LUMBAR (ROUTINE) COMPARISON: January 04, 2025 FINDINGS: Marrow signal is unremarkable. The conus is noted posterior to L1. Paravertebral soft tissues are grossly unremarkable. L1-2: Unremarkable L2-3: Unremarkable L3-4: There is an extrusion noted in the right subarticular and foraminal zones on the right on image 24, series 19 which does not affect the exiting nerve root but may compromise lateral recess structures. No central canal stenosis. L4-5: There is a concentric disc bulge and bilateral facet arthropathy. No significant stenosis. L5-S1: There is a broad-based posterior disc bulge and small annular tear in the central zone on image 8, series 19. No central canal stenosis. Sacrum: Unremarkable MRI/Spine Lumbar (Routine) IMPRESSION: There is an extrusion in the right subarticular zone at L3-L4 which likely affe cts lateral recess structures. No significant stenosis. Reading [facility]
== END | disposition home or self-care (01) ==
PROVIDERS: PCP Family Medicine; Referring Provider Student in an Organized Health Care Education/Training Program; Visit Provider Student in an Organized Health Care Education/Training Program
DX: M54.16 Radiculopathy, lumbar region (principal); M51.361 Other intervertebral disc degeneration, lumbar region with lower extremity pain only
CPT/HCPCS: 72148